=== PATIENT | female | born 1990 ===

== ENCOUNTER 2017-03-21 16:55 | Inpatient (IN) | payer MEDICAID, SELFPAY ==
[2017-03-21 20:18] VITALS: BMI 28.5
[2017-03-21 22:49] LABS: BASO % 0.3 % (0.0-2.0); EOS # 0.1 K/uL (0.0-0.7); EOS % 1.2 % (0.0-4.0); HEMATOCRIT 39.7 % (34.0-47.0); LYMPH # 1.8 K/uL (1.0-4.3); LYMPH % 14.2 % (20.0-40.0); MEAN CELL VOLUME 92.7 fL (81.0-99.0); MEAN CORPUSCULAR HGB CONC 33.4 g/dL (33.0-37.0); MONO # 0.9 K/uL (0.0-0.8); RED CELL DISTRIBUTION WIDTH 13.8 % (11.5-14.5); WHITE BLOOD COUNT 12.4 K/uL (4.8-10.8)
[2017-03-22 06:06] LABS: URINE COLOR YELLOW (YELLOW); URINE GLUCOSE (UA) Normal (Normal)
[2017-03-22 06:07] LABS: RBC URINE 7 /hpf (0-3); URINE BACTERIA OCC (<OCC); URINE BILIRUBIN NEGATIVE (NEGATIVE); URINE BLOOD 3+ (NEGATIVE); URINE KETONE NEGATIVE (NEGATIVE); URINE LEUKOCYTE ESTERASE 1+ Leu/uL (Negative); URINE PROTEIN NEGATIVE (NEGATIVE); URINE UROBILINOGEN Normal mg/dL (0.2-1.0); WBC URINE 16 /hpf (0-5)
[2017-03-22 07:22] LABS: BLOOD UREA NITROGEN 8 mg/dL (7-17); GLUCOSE,RANDOM 86 mg/dL (65-105)
[2017-03-22 07:23] LABS: CALCIUM 8.8 mg/dl (8.6-10.4); CARBON DIOXIDE 19 mmol/L (22-30); CHLORIDE 102 mmol/L (98-107); GFR AFRICAN-AMERICAN > 60; POTASSIUM 3.6 mmol/L (3.6-5.2); SODIUM 134 mmol/L (132-148)
[2017-03-22 09:00] LABS: HEMATOCRIT 35.9 % (34.0-47.0)
[2017-03-22] MEDS: Multiple Vitamins Tab PO SCH (09:15)
--- NOTE | 2017-03-22 12:33 | OBPPN ---
Datetime: 03/22/2017 12:30 PP Pain Prov: Within normal limits PP Nausea Prov: Denies PP Flatus Prov: Yes PP Breasts Prov: Normal PP Heart Prov: Normal PP Lungs Prov: Normal PP Abdomen/Uterus Prov: Normal PP Lochia Prov: Normal PP Vulva/Perineum Prov: Normal PP CVA Tenderness Prov: Normal PP Extremities Prov: Normal PP C/S Incision Prov: Normal PP Progress Prov: Normal PP Comments Phys Exam Prov: ABD: soft, NT, BS- present UT- Firm PP Impression Prov: Normal progression PP Plan Prov: Continue present management PP Progress Note Prov: S/P , POD #2 Clinically Stable. Plan: Continue care. Vital Signs Provider PP: Reviewed
--- NOTE | 2017-03-23 08:07 | OBPPN ---
Datetime: 03/23/2017 08:02 PP Pain Prov: Within normal limits PP Nausea Prov: Denies PP Flatus Prov: Yes PP BM Prov: Yes PP Breasts Prov: Normal PP Heart Prov: Normal PP Lungs Prov: Normal PP Abdomen/Uterus Prov: Normal PP Lochia Prov: Normal PP Vulva/Perineum Prov: Normal PP CVA Tenderness Prov: Normal PP Extremities Prov: Normal PP Progress Prov: Normal PP Comments Phys Exam Prov: Skin: warm, dry, intact Abdomen: Obese. Soft. nondistended. Fundus firm, mobile, non tender, 1FB below umbilicus Mild loch ia rubra All other systems reviewed and are negative PP Impression Prov: Normal progression PP Plan Prov: Discharge PP Progress Note Prov: Patient received in room 453; asleep, easlily awakened. Breast- and bottlefee ding. Denies nausea, vomiting. ambulating and voiding without difficulty. P.E.: as above. WD in NAD, Awake, alert, oriented to time, person and place. - PPD1 H/H 12/35.9 Assessment: PPD#2 26 y.o. P4, S/P . Afebrile, vital signs stable. Desires to use IUD for contra ception. Clinically stable. Plan: 1) Discharge home 2) See full discharge instructions Vital Signs Provider PP: Reviewed; Within Normal Limits
--- NOTE | 2017-03-23 08:08 | OBDCSUM ---
Datetime: 01/23/2017 13:55 Discharge Diagnosis, Provider: Term Delivered Follow up in weeks, Provider: 6 weeks Contraception discussed, Prov: Yes Disch Activity Restrictions: No sexual activity; Nothing in vagina - [place], tampons, douche Discharge Diagnosis Prov Other: Contraception counseling Contraception after Delivery: IUD
[2017-03-23 08:45] VITALS: BP 98/53; PULSE 67; RESP 18; TEMP 97.7; O2SAT 99
[2017-03-23] MEDS: Multiple Vitamins Tab PO SCH (10:00)
--- NOTE | 2017-03-27 14:25 | OBDS ---
DELIVERY PERSONNEL Delivery Doctor: Mike Maxwell MD Scrub Nurse: Patricia Vega Patrol Conductor: Evelia Graff RN Anesthesiologist: DR. MARIN MATERNAL INFORMATION Delivery Anesthesia: Epidural Medications in Delivery: PITOCIN Estimated Blood Loss (ml): 150 Placenta Cultured: No Maternal Complications: None RN Comments: LIVE BABY GIRL 'S 9/9 SKIN TO SKIN DONE BREAST FEEDING STARTED Provider Comments: to a viable girl, 's 9/9, uncomplicated. LABOR SUMMARY EDC: 03/23/2017 00:00 No. Babies in Womb: 1 Attempted: No Labor Anesthesia: Epidural LABOR INFORMATION Reason for Induction: Not Applicable Onset of Labor: 03/21/2017 15:00 Complete Dilatation: 03/21/2017 19:42 Oxytocin: N/A Group B Beta Strep: Negative Antibiotics # of Doses: 0 Steroids Given: None Reason Steroids Not Administered: Not Applicable MEMBRANES Membranes Rupture Method: Artificial Rupture of Membranes: 03/22/2017 19:42 Length of Rupture (hrs): -23.92 Amniotic Fluid Color: Clear Amniotic Fluid Amount: Moderate Amniotic Fluid Odor: Normal STAGES OF LABOR Stage 1 hrs: 4 Stage 1 min: 42 Stage 2 hrs: 0 Stage 2 min: 5 Stage 3 hrs: 0 Stage 3 min: 1 Total Time in Labor hrs: 4 Total Time in Labor min: 48 VAGINAL DELIVERY Episiotomy: None Laceration Extension: N/A Laceration Type: None Initial Vag Sponge Count: 10 Final Vag Sponge Count: 10 Initial Vag Sharps Count: 0 Final Vag Sharps Count: 0 Sponge Count Correct: Yes; Vaginal Sweep Performed Sharps Count Correct: N/A BABY A INFORMATION Delivery Date/Time: 03/21/2017 19:47 Method of Delivery: Vaginal Born in Route : No : N/A Forceps: N/A Vacuum Extraction: N/A Shoulder Dystocia : No SHOULDER DYSTOCIA BABY A Infant Delivery Date/Time: 03/21/2017 19:47 PRESENTATION/POSITION BABY A Presentation: Cephalic Cephalic Presentation: Vertex Vertex Position: Right Occipital Anterior Breech Presentation: N/A PLACENTA INFORMATION BABY A Placenta Delivery Time : 03/21/2017 19:48 Placenta Method of Delivery: Spontaneous Placenta Status: Delivered SCORES BABY A Heart Rate 1 min: >100 bpm Resp Effort 1 min: Good Cry Reflex Irritability 1 min: Cough or Sneeze or Pulls Away Muscle Tone 1 min: Active Motion Color 1 min: Body [place], Extremities Blue Resuscitation Effort 1 min: Tactile Stimulation SCORE 1 MIN: 9 Heart Rate 5 min: >100 bpm Resp Effort 5 min: Good Cry Reflex Irritability 5 min: Cough or Sneeze or Pulls Away Muscle Tone 5 min: Active Motion Color 5 min: Body [place], Extremities Blue Resuscitation Effort 5 min: Tactile Stimulation SCORE 5 MIN: 9 INFORMATION BABY A Gestational Age at Delivery: 39.5 Gestational Status: Term Infant Outcome : Liveborn Condition : Stable Infant Sex: Female IDENTIFICATION/MEDS BABY A ID Band Number: [id number] ID Band Location: Left Leg; Left Arm Sensor Applied: Yes Sensor Number: [id number] Sensor Number: [id number] Sensor Location : Cord Clamp WEIGHT/LENGTH BABY A Infant Birthweight (gms): 2685 Birthweight (gms): 2685 Weight (lb): 5 Weight (lb): 5 Weight (oz): 15 Infant Weight (oz): 15 Infant Length Inches: 19.00 Infant Length cms: 48.3 CORD INFORMATION BABY A No. Cord Vessels: 3 Nuchal Cord : N/A Cord Blood Taken: Yes Suction: Mouth; Nose ASSESSMENT BABY A Infant Complications: None Physical Findings at Delivery: Within Normal Limits Infant Respirations: Appears Normal Crude Tester/ALS Called : No Care By: PABLO HOOPER Transferred To: [facility]
--- NOTE | 2017-03-27 14:25 | OBHP ---
Datetime: 03/21/2017 17:36 Admit Comment, IP Provider: Early Active Labor. Reassuring Status. Admit for Labor Protocol A nticipate . Addendum:Admission H_P unchanged from JEREMÍAS. EGA AdmitDate IP: 39.5
--- NOTE | 2017-03-27 14:30 | OBADHP ---
Datetime: 03/21/2017 17:45 Admit Comment, IP Provider: Early Active Labor Pelvic Type - PN: Adequate Extremities - PN: Normal Abdomen - PN: Normal Back - PN: Normal Breast - PN: Not Done Lungs - PN: Normal Heart - PN: Normal Thyroid - PN: Not Done Neurologic - PN: Not Done HEENT - PN: Not Done General - PN: Normal Weight - Estimated: 3600 Presentation-Admit: Vertex FHR - Baseline A Provider: 120 Membranes, Provider: Intact Contraction Comments Provider: Q 3min Gestation - Est Wks by US: 40.0 Nitrazine Provider: Negative IP Hx Assessment: The History has been Reviewed and is Current Vital Signs Provider: Reviewed; Within Normal Limits IP Chief Complaint: Uterine contractions; Suspected ruptured membranes NICHD Variability Prov Fetus A: Moderate 6-25bpm NICHD Accel Fetus A IP Provider: 15X15 FHR Category Provider Fetus A: Category I NICHD Decel Fetus A IP Provider: None Dilatation, Provider: 3-4 Effacement, Provider: 80 Station, Provider: -2 Genitourinary Exam: Normal DTRs - PN: Normal EGA AdmitDate IP: 39.5 IP Adm Impression: Term, intrauterine ; Active labor IP Admit Plan: Admit to unit; Initiate labor protocol
--- NOTE | 2017-03-27 14:34 | OBHP ---
Datetime: 03/21/2017 17:45 IP Adm Impression: Term, intrauterine ; Active labor IP Admit Plan: Admit to unit; Initiate labor protocol Admit Comment, IP Provider: Early Active Labor Pelvic Type - PN: Adequate Extremities - PN: Normal Abdomen - PN: Normal Back - PN: Normal Breast - PN: Not Done Lungs - PN: Normal Heart - PN: Normal Thyroid - PN: Not Done Neurologic - PN: Not Done HEENT - PN: Not Done General - PN: Normal Weight - Estimated: 3600 Presentation-Admit: Vertex FHR - Baseline A Provider: 120 Membranes, Provider: Intact Contraction Comments Provider: Q 3min Gestation - Est Wks by US: 40.0 Nitrazine Provider: Negative IP Hx Assessment: The History has been Reviewed and is Current EGA AdmitDate IP: 39.5 Vital Signs Provider: Reviewed; Within Normal Limits IP Indication for Induction: Not Applicable IP Chief Complaint: Uterine contractions; Suspected ruptured membranes NICHD Variability Prov Fetus A: Moderate 6-25bpm NICHD Accel Fetus A IP Provider: 15X15 FHR Category Provider Fetus A: Category I NICHD Decel Fetus A IP Provider: None Dilatation, Provider: 3-4 Effacement, Provider: 80 Station, Provider: -2 Genitourinary Exam: Normal DTRs - PN: Normal
== END 2017-03-23 12:30 | disposition home or self-care (01) | DRG 373 ==
LOC: C.EROB 16:55 → C.4D 16:56 → MERGE 16:56 → C.4M 23:00
PROVIDERS: ADMIT Obstetrics & Gynecology; ATTEND Obstetrics & Gynecology
PROC: 10E0XZZ Delivery of Products of Conception, External Approach (ICD-10-PCS; principal; 2017-03-21)
PROC: 10907ZC Drainage of Amniotic Fluid, Therapeutic from Products of Conception, Via Natural or Artificial Opening (ICD-10-PCS; 2017-03-21)
DX: O80 Encounter for full-term uncomplicated delivery (principal); Z3A.39 39 weeks gestation of pregnancy; Z37.0 Single live birth

== ENCOUNTER 2017-04-22 19:22 | Emergency (ER) | payer SELFPAY ==
[2017-04-22 19:22] VITALS: BMI 28.5
[2017-04-22 19:39] VITALS: BP 105/70; RESP 18; TEMP 98.3; O2SAT 98
--- NOTE | 2017-04-22 20:47 | C.PDOC ---
History Of Present Illness 26 y/o female presents to the ED for evaluation of left ear pain associated with sore throat which began around 3 days ago. Patient denies fever, chills, nausea, vomiting. Time Seen by Provider: 04/22/17 20:03 Chief Complaint (Nursing): Flu-like Symptoms History Per: Patient History/Exam Limitations: no limitations Onset/Duration Of Symptoms: Days (3) Current Symptoms Are (Timing): Still Present Location Of Pain: Ear(s) (left), Throat Associated Symptoms: denies: Fever, Chills, Nausea, Vomiting Ear Symptoms: Left: Ear Pain, Right: None Additional History Per: Patient Past Medical History Reviewed: Historical Data, Nursing Documentation, Vital Signs Vital Signs: Last Vital Signs Temp 98.3 F 04/22/17 19:36 Pulse 82 04/22/17 20:53 Resp 18 04/22/17 19:36 BP 105/70 04/22/17 19:36 Pulse Ox 98 04/22/17 22:07 - Medical History PMH: No Chronic Diseases Denies: Anxiety, Asthma Surgical History: No Surg Hx - [facility] Procedures DELIVERY OF PRODUCTS OF CONCEPTION, EXTERNAL APPROACH (03/21/17) DRAINAGE OF AMNIOTIC FL, THERAP FROM POC, VIA OPENING (03/21/17) Family History: States: Unknown Family Hx - Social History Hx Tobacco Use: Yes Hx Alcohol Use: No Hx Substance Use: No - Immunization History Hx Tetanus Toxoid Vaccination: No Hx Influenza Vaccination: No Hx Pneumococcal Vaccination: No Review Of Systems Except As Marked, All Systems Reviewed And Found Negative. Constitutional: Negative for: Fever, Chills ENT: Positive for: Ear Pain (left), Throat Pain Gastrointestinal: Negative for: Nausea, Vomiting Physical Exam - Physical Exam Appears: Non-toxic, No Acute Distress Skin: Normal Color, Warm, Dry Head: Atraumatic, Normacephalic Eye(s): bilateral: Normal Inspection Ear(s): Bilateral: Normal Nose: Normal, No Discharge Oral Mucosa: Moist Throat: Erythema (mild), No Exudate Neck: Normal ROM, Supple Chest: Symmetrical, No Deformity, No Tenderness Cardiovascular: Rhythm Regular, No Friction Rub, No Murmur Respiratory: Normal Breath Sounds, No Rales, No Rhonchi, No Wheezing Gastrointestinal/Abdominal: Bowel Sounds, Soft, No Tenderness Back: Normal Inspection Extremity: Normal ROM, No Swelling Neurological/Psych: Oriented x3, Normal Speech, Normal Cognition, Normal Motor Gait: Steady ED Course And Treatment O2 Sat by Pulse Oximetry: 98 (on RA) Pulse Ox Interpretation: Normal Medical Decision Making Medical Decision Making: Plan: * Amoxicillin PO * Tylenol PO * reassess and disposition Progress: Patient received Amoxicillin PO and Tylenol PO. On reassessment, pt is resting comfortably, showing no signs of distress and reports an improvement in her symptoms. Patient is stable for discharge and is advised to f/u with her PMD within 1-2 days for further evaluation. Disposition - Disposition Referrals: [facility] [Outside] Disposition: HOME/ ROUTINE Disposition Time: 20:43 Condition: GOOD Additional Instructions: Follow up with the medical doctor within 1-2 days. Return if worsened. 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 - Scribe Statement The provider has reviewed the documentation as recorded by the Scribe (Delphine Quintana) All medical record entries made by the Scribe were at my direction and personally dictated by me. I have reviewed the chart and agree that the record accurately reflects my personal performance of the history, physical exam, medical decision making, and the department course for this patient. I have also personally directed, reviewed, and agree with the discharge instructions and disposition.
[2017-04-22 20:54] VITALS: PULSE 82
== END 2017-04-22 20:54 | disposition home or self-care (01) ==
LOC: C.ER 19:22 → SUPCPDRO 19:22 → C.ER 20:54
DX: J02.9 Acute pharyngitis, unspecified (principal); Z72.0 Tobacco use

== ENCOUNTER 2017-05-30 15:48 | Emergency (ER) | payer OTHER ==
[2017-05-30 15:48] VITALS: BMI 28.5
--- NOTE | 2017-05-30 17:49 | C.PDOC ---
History Of Present Illness 26 y/o female presents to the ED with complaints of dysuria x2 weeks. Pt denies fever, chills, back pain, vaginal bleeding or discharge or any other complaints. Pt currently . Chief Complaint (Nursing): Female Genitourinary History Per: Patient History/Exam Limitations: no limitations Onset/Duration Of Symptoms: Days Current Symptoms Are (Timing): Still Present Severity: Moderate Associated Symptoms: Urinary Symptoms. denies: Fever, Chills, Nausea, Vomiting , Back Pain Alleviating Factors: None Recent travel outside of the [place]: No Abnormal Vaginal Bleeding: No Past Medical History Reviewed: Historical Data, Nursing Documentation, Vital Signs Vital Signs: Last Vital Signs Temp 98.4 F 05/30/17 19:31 Pulse 96 H 05/30/17 19:31 Resp 18 05/30/17 19:31 BP 110/76 05/30/17 19:31 Pulse Ox 100 05/30/17 19:31 - [facility] Procedures DELIVERY OF PRODUCTS OF CONCEPTION, EXTERNAL APPROACH (03/21/17) DRAINAGE OF AMNIOTIC FL, THERAP FROM POC, VIA OPENING (03/21/17) Family History: States: Unknown Family Hx - Social History Hx Tobacco Use: Yes Hx Alcohol Use: No Hx Substance Use: No - Immunization History Hx Tetanus Toxoid Vaccination: No Hx Influenza Vaccination: No Hx Pneumococcal Vaccination: No Review Of Systems Constitutional: Negative for: Fever, Chills Genitourinary: Positive for: Dysuria. Negative for: Vaginal Discharge, Vaginal Bleeding Musculoskeletal: Negative for: Back Pain Physical Exam - Physical Exam Appears: Non-toxic, No Acute Distress Skin: Warm, Dry, No Rash Head: Atraumatic, Normacephalic Gastrointestinal/Abdominal: Normal Exam, Soft, No Tenderness Back: Normal Inspection, No CVA Tenderness Extremity: Normal ROM Extremity: Bilateral: Atraumatic Neurological/Psych: Oriented x3, Normal Speech, Normal Cognition ED Course And Treatment O2 Sat by Pulse Oximetry: 97 (room air) Pulse Ox Interpretation: Normal Progress Note: Plan: UA Disposition - Disposition Disposition: HOME/ ROUTINE Disposition Time: 19:58 Condition: STABLE Additional Instructions: Follow up with PMD within 1-2 days. Return to Ed if feel worse. Prescriptions: Nitrofurantoin Macrocrystals [Macrobid] 1 cap PO BID #14 cap Phenazopyridine [Pyridium] 200 mg PO TID #15 tab Instructions: Urinary Tract Infection in Women (ED) Forms: [facility] (Hungarian) Print Language: FRENCH - Clinical Impression Clinical Impression: UTI (urinary tract infection) - PA / DIRECTOR OF GRADUATE ADMISSIONS / Resident Statement MD/DO has reviewed & agrees with the documentation as recorded. - Scribe Statement The provider has reviewed the documentation as recorded by the Scribe Mk Wong All medical record entries made by the Isabelleibandrea were at my direction and personally dictated by me. I have reviewed the chart and agree that the record accurately reflects my personal performance of the history, physical exam, medical decision making, and the department course for this patient. I have also personally directed, reviewed, and agree with the discharge instructions and disposition.
[2017-05-30 17:58] LABS: RBC URINE < 1 /hpf (0-3); URINE BACTERIA FEW (<OCC); URINE BILIRUBIN NEGATIVE (NEGATIVE); URINE BLOOD NEGATIVE (NEGATIVE); URINE COLOR Yellow (YELLOW); URINE GLUCOSE (UA) NORMAL (Normal); URINE KETONE NEGATIVE (NEGATIVE); URINE LEUKOCYTE ESTERASE TRACE Leu/uL (Negative); URINE PROTEIN NEGATIVE (NEGATIVE); URINE UROBILINOGEN NORMAL mg/dL (0.2-1.0); WBC URINE 4 /hpf (0-5)
[2017-05-30 19:32] VITALS: RESP 18
[2017-05-30 20:13] VITALS: BP 111/68; PULSE 81; TEMP 98.5
[2017-05-30 21:11] VITALS: O2SAT 97
== END 2017-05-30 20:14 | disposition home or self-care (01) ==
LOC: C.ER 15:48
DX: N39.0 Urinary tract infection, site not specified (principal)

== ENCOUNTER 2018-04-04 05:51 | Emergency (ER) | payer OTHER ==
[2018-04-04 05:51] VITALS: BMI 28.5
--- NOTE | 2018-04-04 06:03 | C.PDOC ---
History Of Present Illness 27 y/o female presents to the ED complaining of RUQ pain and mild dysuria, onset today. Patient reports PMHx of gall stones. Associated with some nausea, no vomiting. Otherwise denies any bloody stool, diarrhea, fever, or chills. Time Seen by Provider: 04/04/18 06:02 Chief Complaint (Nursing): Abdominal Pain History Per: Patient History/Exam Limitations: no limitations Onset/Duration Of Symptoms: Hrs Current Symptoms Are (Timing): Still Present Severity: Moderate Pain Scale Rating Of: 6 Location Of Pain/Discomfort: RUQ Radiation Of Pain To:: None Quality Of Discomfort: Sharp, Stabbing Associated Symptoms: Nausea Exacerbating Factors: None Alleviating Factors: None Past Medical History Reviewed: Historical Data, Nursing Documentation, Vital Signs Vital Signs: Last Vital Signs Temp 97.9 F 04/04/18 05:53 Pulse 72 04/04/18 05:53 Resp 16 04/04/18 05:53 BP 123/74 04/04/18 05:53 Pulse Ox 99 04/04/18 06:26 - Medical History PMH: No Chronic Diseases Denies: Anxiety, Asthma Surgical History: No Surg Hx - [facility] Procedures DELIVERY OF PRODUCTS OF CONCEPTION, EXTERNAL APPROACH (03/21/17) DRAINAGE OF AMNIOTIC FL, THERAP FROM POC, VIA OPENING (03/21/17) Family History: States: Unknown Family Hx - Social History Hx Tobacco Use: Yes Hx Alcohol Use: No Hx Substance Use: No - Immunization History Hx Tetanus Toxoid Vaccination: No Hx Influenza Vaccination: No Hx Pneumococcal Vaccination: No Review Of Systems Except As Marked, All Systems Reviewed And Found Negative. Constitutional: Negative for: Fever, Chills Gastrointestinal: Positive for: Nausea, Abdominal Pain. Negative for: Vomiting , Diarrhea Genitourinary: Positive for: Dysuria Physical Exam - Physical Exam Appears: Non-toxic, No Acute Distress Skin: Warm, Dry Head: Normacephalic Eye(s): bilateral: Normal Inspection Oral Mucosa: Moist Neck: Trachea Midline, Supple Chest: Symmetrical Cardiovascular: Rhythm Regular Respiratory: No Rales, No Rhonchi, No Wheezing Gastrointestinal/Abdominal: Bowel Sounds (positive), Soft, Tenderness (to right upper quadrant), No Guarding, Other (Obese abdomen) Back: Normal Inspection Extremity: Bilateral: Atraumatic, Normal Color And Temperature, Normal ROM Pulses: Left Dorsalis Pedis: Normal, Right Dorsalis Pedis: Normal Neurological/Psych: Oriented x3 Gait: Steady ED Course And Treatment O2 Sat by Pulse Oximetry: 99 (RA) Pulse Ox Interpretation: Normal Progress Note: Blood work, urine, and CT A/P with IV contrast ordered. Patient treated with IV fluids, Morphine, and Zofran. 7:[address] Cronin , pending CT scan. Disposition Counseled Patient/Family Regarding: Studies Performed, Diagnosis - Disposition Disposition Time: 06:03 Condition: FAIR Forms: [employer] ([place]) - Clinical Impression Clinical Impression: Abdominal pain - Scribe Statement The provider has reviewed the documentation as recorded by the Scribe (Lindsay Whiting) Provider Attestation: All medical record entries made by the Scribe were at my direction and personally dictated by me. I have reviewed the chart and agree that the record accurately reflects my personal performance of the history, physical exam, medical decision making, and the department course for this patient. I have also personally directed, reviewed, and agree with the discharge instructions and disposition. Physician Patient Turnover Patient Signed Over To: Shashi Cronin Handoff Comments: pending CT and remaining labs
[2018-04-04 06:07] VITALS: RESP 16
[2018-04-04] MEDS ORDERED: Sodium Chloride 0.9% 1,000 ML IV ONE (06:15)
[2018-04-04 06:16] LABS: HCG,QUALITATIVE URINE NEGATIVE (NEGATIVE)
[2018-04-04 06:20] LABS: SQUAMOUS EPITHIAL 5 /hpf (0-5); URINE BILIRUBIN NEGATIVE (NEGATIVE); URINE BLOOD 3+ (NEGATIVE); URINE CLARITY Clear (Clear); URINE COLOR Straw (YELLOW); URINE GLUCOSE (UA) NORMAL (Normal); URINE LEUKOCYTE ESTERASE NEG Leu/uL (Negative); URINE PROTEIN NEGATIVE (NEGATIVE); URINE UROBILINOGEN NORMAL mg/dL (0.2-1.0)
[2018-04-04 06:43] LABS: BASO # 0.1 K/uL (0.0-0.2); EOS # 0.6 K/uL (0.0-0.7); HEMOGLOBIN 13.9 g/dL (11.0-16.0); LYMPH # 2.2 K/uL (1.0-4.3); LYMPH % 28.7 % (20.0-40.0); MEAN CELL VOLUME 89.4 fL (81.0-99.0); MEAN CORPUSCULAR HEMOGLOBIN 32.5 pg (27.0-31.0); MEAN CORPUSCULAR HGB CONC 36.3 g/dL (33.0-37.0); MEAN PLATELET VOLUME 8.6 fL (7.2-11.7); MONO # 0.6 K/uL (0.0-0.8); MONO % 7.5 % (0.0-10.0); NEUT # 4.3 K/uL (1.8-7.0); NEUT % 54.8 % (50.0-75.0); NRBC % 0.1 % (0.0-2.0); RBC 4.27 Mil/uL (3.80-5.20); RED CELL DISTRIBUTION WIDTH 12.5 % (11.5-14.5); WHITE BLOOD COUNT 7.8 K/uL (4.8-10.8)
[2018-04-04 06:54] LABS: ALB/GLOB RATIO 1.3 (1.0-2.1); ALT/SGPT 50 U/L (9-52); AST/SGOT 27 U/L (14-36); BLOOD UREA NITROGEN 13 mg/dL (7-17); GFR AFRICAN-AMERICAN > 60; GFR NON-AFRICAN AMERICAN > 60; LIPASE 130 U/L (23-300)
[2018-04-04 06:56] LABS: INR 1.1; PROTHROMBIN TIME 11.8 SECONDS (9.7-12.2)
[2018-04-04] MEDS ORDERED: Iodixanol 320 MG/ML 100 ML BOTTLE IV ONE (07:31)
[2018-04-04 08:19] VITALS: O2SAT 98
--- NOTE | 2018-04-04 08:29 | CT ---
PROCEDURE: CT Abdomen and Pelvis with contrast HISTORY: Right upper quadrant pain COMPARISON: None. TECHNIQUE: CT scan of the abdomen and pelvis was performed after administration of intravenous contrast. Oral contrast was not administered. Coronal and sagittal reformatted images were obtained. Contrast dose: Radiation dose: Total exam DLP = 100 mL Visipaque mGy-cm. This CT exam was performed using one or more of the following dose reduction techniques: Automated exposure control, adjustment of the mA and/or kV according to patient size, and/or use of iterative reconstruction technique. FINDINGS: LOWER THORAX: The lung bases are clear. LIVER: There is mild hepatomegaly and diffuse low-attenuation in the liver. No gross lesion or ductal dilatation. GALLBLADDER AND BILE DUCTS: There is a small gallstone PANCREAS: Normal in size with homogeneous enhancement. No gross lesion or ductal dilatation. SPLEEN: Normal in size and appearance. ADRENALS: No discrete nodule. KIDNEYS AND URETERS: Normal in size with homogeneous enhancement. No hydronephrosis. No solid mass. VASCULATURE: No aortic aneurysm. BOWEL: The small bowel loops are normal in caliber. The colon is unremarkable. No bowel dilatation or obstruction. APPENDIX: Normal appendix. PERITONEUM: No free fluid. No free air. LYMPH NODES: No enlarged lymph nodes. BLADDER: Well distended and normal in appearance. REPRODUCTIVE: The uterus is normal in size. BONES: No acute fracture. Within normal limits for the patient's age. OTHER FINDINGS: None. IMPRESSION: 1. Mild hepatomegaly. Diffuse decreased density in the liver may reflect hepatic steatosis however parenchymal infectious/ inflammatory etiologies cannot be entirely excluded. Clinical and laboratory correlation is advised. 2. No CT evidence for acute appendicitis.
[2018-04-04 09:30] VITALS: BP 125/80; PULSE 84; TEMP 98.5
== END 2018-04-04 09:30 | disposition home or self-care (01) ==
LOC: C.ER 05:51
DX: K80.20 Calculus of gallbladder without cholecystitis without obstruction (principal); R10.11 Right upper quadrant pain
CPT/HCPCS: 74177; 80053; 81001; 83690; 84703; 85025; 85610; 85730; 96374; 96375; 99285; J2270; J2405; J7030; Q9967

== ENCOUNTER 2018-05-26 18:53 | Emergency (ER) | payer OTHER ==
[2018-05-26 18:53] VITALS: BMI 28.5
[2018-05-26 20:09] LABS: HCG,QUALITATIVE URINE POSITIVE (NEGATIVE)
[2018-05-26 20:10] LABS: BASO % 0.4 % (0.0-2.0); EOS # 0.4 K/uL (0.0-0.7); EOS % 3.4 % (0.0-4.0); HEMOGLOBIN 13.6 g/dL (11.0-16.0); LYMPH # 2.5 K/uL (1.0-4.3); LYMPH % 20.7 % (20.0-40.0); MEAN CELL VOLUME 90.7 fL (81.0-99.0); MEAN CORPUSCULAR HEMOGLOBIN 31.6 pg (27.0-31.0); MEAN CORPUSCULAR HGB CONC 34.8 g/dL (33.0-37.0); MEAN PLATELET VOLUME 8.9 fL (7.2-11.7); MONO # 0.9 K/uL (0.0-0.8); MONO % 7.2 % (0.0-10.0); NEUT # 8.3 K/uL (1.8-7.0); NEUT % 68.3 % (50.0-75.0); RBC 4.3 Mil/uL (3.80-5.20); RED CELL DISTRIBUTION WIDTH 12.6 % (11.5-14.5)
[2018-05-26 20:12] LABS: WHITE BLOOD COUNT 12.2 K/uL (4.8-10.8)
[2018-05-26 20:18] LABS: SQUAMOUS EPITHIAL 9 /hpf (0-5); URINE BACTERIA RARE (<OCC); URINE BILIRUBIN NEGATIVE (NEGATIVE); URINE BLOOD 2+ (NEGATIVE); URINE CLARITY Hazy (Clear); URINE COLOR Yellow (YELLOW); URINE GLUCOSE (UA) NORMAL (Normal); URINE LEUKOCYTE ESTERASE 3+ Leu/uL (Negative); URINE PROTEIN 2+ mg/dL (NEGATIVE); URINE UROBILINOGEN NORMAL mg/dL (0.2-1.0)
[2018-05-26 20:23] LABS: ALB/GLOB RATIO 1.5 (1.0-2.1); ALBUMIN 4.5 g/dL (3.5-5.0); ALT/SGPT 69 U/L (9-52); AST/SGOT 32 U/L (14-36); BLOOD UREA NITROGEN 14 mg/dL (7-17); CALCIUM 9.6 mg/dl (8.6-10.4); GFR AFRICAN-AMERICAN > 60; GFR NON-AFRICAN AMERICAN > 60
--- NOTE | 2018-05-26 21:15 | C.PDOC ---
History Of Present Illness 27-year-old female presents to the ED with complaints of suprapubic pain since this morning. Pain is described as crampy in nature, intermittent, and radiates to her back. Otherwise patient denies any fever, vomiting, dysuria, frequency, or vaginal bleeding. Patient does report some nausea. LMP was 04/16. She noticed some light spotting for 2 days last week, and had a home test that was positive. Time Seen by Provider: 05/26/18 19:34 Chief Complaint (Nursing): Abdominal Pain History Per: Patient History/Exam Limitations: no limitations Onset/Duration Of Symptoms: Hrs Current Symptoms Are (Timing): Still Present Location Of Pain/Discomfort: Suprapubic Abnormal Vaginal Bleeding: No Last Menstral Period: 04/16/18 Past Medical History Reviewed: Historical Data, Nursing Documentation, Vital Signs Vital Signs: Last Vital Signs Temp 99 F 05/26/18 22:09 Pulse 68 05/26/18 22:09 Resp 18 05/26/18 22:09 BP 104/66 05/26/18 22:09 Pulse Ox 98 05/26/18 22:36 - Medical History PMH: No Chronic Diseases Denies: Anxiety, Asthma Surgical History: No Surg Hx - [facility] Procedures DELIVERY OF PRODUCTS OF CONCEPTION, EXTERNAL APPROACH (03/21/17) DRAINAGE OF AMNIOTIC FL, THERAP FROM POC, VIA OPENING (03/21/17) Family History: States: Unknown Family Hx - Social History Hx Tobacco Use: Yes Hx Alcohol Use: No Hx Substance Use: No - Immunization History Hx Tetanus Toxoid Vaccination: No Hx Influenza Vaccination: No Hx Pneumococcal Vaccination: No Review Of Systems Except As Marked, All Systems Reviewed And Found Negative. Gastrointestinal: Positive for: Nausea, Abdominal Pain. Negative for: Vomiting , Diarrhea Genitourinary: Negative for: Dysuria, Frequency, Incontinence, Vaginal Bleeding Physical Exam - Physical Exam Appears: Well, Non-toxic, No Acute Distress Skin: Warm, Dry, No Rash Head: Atraumatic, Normacephalic Eye(s): bilateral: Normal Inspection Oral Mucosa: Moist Neck: Normal ROM Chest: Symmetrical Cardiovascular: Rhythm Regular, No Murmur Respiratory: Normal Breath Sounds, No Rales, No Rhonchi, No Wheezing Gastrointestinal/Abdominal: Soft, Tenderness (mild suprapubic tenderness), No Guarding, No Rebound Back: Normal Inspection Extremity: Bilateral: Atraumatic, Normal Color And Temperature, Normal ROM Neurological/Psych: Oriented x3, Normal Speech ED Course And Treatment - Laboratory Results Result Diagrams: 05/26/18 19:59 05/26/18 19:59 Lab Interpretation: No Acute Changes O2 Sat by Pulse Oximetry: 98 (RA) Pulse Ox Interpretation: Normal - CT Scan/US US Other Rad Studies (CT/US): Read By Radiologist, Radiology Report Reviewed CT/US Interpretation: Name: MARTÍN MEDINA Age: 27Years F Date: 2017. Requesting Physician: GeorgeMartín : 1990. [facility] Procedure Ordered As Accession. Number. of. Images. US TRANSABD FIRST. TRIMESTER FIRST GEST. PREG 1ST. TRIMESTER/OB TV. [id number]. J. 89. Provided Clinical History: pelvic pain, , no bleeding. EXAM: US First Trimester, Transabdominal. US , Transvaginal. CLINICAL HISTORY: 27 years old, female; Pain; Other: Pelvic pain ; Gestational age or lmp: 5-20-18; ; Additional. info: Pelvic pain, , no bleeding. TECHNIQUE: Real-time transabdominal and transvaginal obstetrical ultrasound of the maternal pelvis and a first. trimester with image documentation. Transvaginal imaging was used for better evaluation. of the fetus and adnexa. COMPARISON: US - PREG 1ST TRIMESTER/OB TV 2015-11-29 16:33. FINDINGS: Gestation: There is an apparent intrauterine fluid collection seen on the transvaginal imaging in the. lower uterine segment. There is no yolk sac or pole present. This finding measures 1.2 cm a gestational sac of this size would be. 5 weeks 3 days gestational age. The appearance and location of this fluid collection suggests a possible nonviable gestation. A small subchorionic hemorrhage is seen 5.3 mm x 4.2 mm x 4 mm. The endometrium measures 7.3 mm. Placenta/amniotic fluid: Cannot be adequately evaluated due to the early gestational age. Uterus/cervix: Unremarkable. No myometrial mass. The cervix measures 3.1 cm in length. The uterus measures 10.5 cm x 4.5 cm x 5.5 cm. RIGHT ovary 3.4 cm x 2.6 cm x 2.2 cm. Corpus luteum cyst 1.9 cm x 1.3 cm x 1.4 cm. LEFT ovary 3.1 cm x 1.5 cm x 1.5 cm. It should. Ovaries: Unremarkable. No mass. Free fluid: No free fluid. IMPRESSION: 1. Small fluid collection in the lower uterine segment portion of the endometrium possible abnormal. gestational sac possible nonviable gestation. No yolk sac or pole. 2. negative exam of the LEFT ovary. 3. Corpus luteum cyst RIGHT ovary. 4. Small Subchorionic hemorrhage. Thank you for allowing us to participate in the care of your patient. Dictated and Authenticated by: Avelino Sargent MD. 05/26/2018 10:06 PM Eastern Time ([place] & Norm) Medical Decision Making Medical Decision Making: Impression: Abdominal pain, rule out ectopic Plan: --CMP --CBC --Beta-HCG, quant --Urine HCG --Urinalysis --Transvaginal US --Tylenol Progress/Updates: Labs reviewed. Ultrasound showed small fluid collection in the lower uterine segment portion of the endometrium possible abnormal gestational sac possible nonviable gestation. No yolk sac or pole. Small Subchorionic hemorrhage. Other findings, see full report. Counseled patient regarding ultrasound findings, provided with copy of report. I explained to the patient this may not be viable and there is chance for . I advised the patient to follow up with informal waiter/waitress or return to the ER in one week for repeat labs and US. The patient expressed understanding Disposition Counseled Patient/Family Regarding: Diagnosis, Need For Followup - Disposition [facility] Disposition: HOME/ ROUTINE Disposition Time: 22:35 Condition: STABLE Additional Instructions: Jennifer laboratorios y la ecografa muestran que tiene 5 semanas de embarazo. Tenga en cuenta que el ultrasonido fue anormal y que existe la posibilidad de un embarazo no viable y un aborto espontneo. Recomendar el seguimiento en anca semana con obgyn o regresar a la nilesh de emergencias para repetir el anlisis de taras y el ultrasonido Instructions: Threatened Miscarriage (DC) Forms: [facility] (Vietnamese) Print Language: BENGALI - POA Present On Arrival: None - Clinical Impression Clinical Impression: Threatened - PA / [employer]UM[employer] OPERATOR / Resident Statement MD/DO has reviewed & agrees with the documentation as recorded. - Scribe Statement The provider has reviewed the documentation as recorded by the Scribe (Lindsay Whiting) All medical record entries made by the Scribe were at my direction and personally dictated by me. I have reviewed the chart and agree that the record accurately reflects my personal performance of the history, physical exam, medical decision making, and the department course for this patient. I have also personally directed, reviewed, and agree with the discharge instructions and disposition.
[2018-05-26 22:10] VITALS: BP 104/66; PULSE 68; RESP 18; TEMP 99
[2018-05-26 22:12] VITALS: O2SAT 98
--- NOTE | 2018-05-27 10:20 | US ---
Date of service: 05/26/2018 PROCEDURE: OB Pelvic Ultrasound HISTORY: pelvic pain, , no bleeding LMP: 03/23/2018 Serum beta HCG 7043.3 COMPARISON: No relevant prior imaging. FINDINGS: UTERUS: Gestational sac: Elongated fluid collection within the lower uterine segment measuring 2.3 x 0.7 x 0.9 cm with subjacent 5 mm hypoechoic area. Yolk sac: Not visualized. pole: Not visualized. age (Ultrasound estimated): Polly-gestational hemorrhage: None. Date of delivery (Ultrasound estimated) : Uterus measures 10.5 x 4.5 x 5.5 cm. Anteverted. Normal in size and appearance. CERVIX: Measures 3.2 cm. Long and closed. No cervical abnormality seen. RIGHT OVARY: Measures 3.4 x 2.6 x 2.2 cm. 1.9 x 1.3 x 1.4 cm corpus luteum. Normal flow. LEFT OVARY: Measures 3.1 x 1.5 x 1.5 cm. No solid mass. Normal flow. FREE FLUID: None. OTHER FINDINGS: None. IMPRESSION: Elongated fluid collection within the lower uterine segment which may represent an abnormal gestational sac and/or nonviable gestation. Close clinical follow-up with serial pelvic sonography and serum beta HCG levels is recommended.
== END 2018-05-26 23:02 | disposition home or self-care (01) ==
LOC: C.ER 18:53
DX: O20.0 Threatened abortion (principal)

== ENCOUNTER 2018-05-27 21:40 | Emergency (ER) | payer OTHER ==
[2018-05-27 21:41] VITALS: BMI 28.5
[2018-05-27 22:04] VITALS: RESP 20
[2018-05-27 22:43] LABS: HCG,QUALITATIVE URINE POSITIVE (NEGATIVE)
[2018-05-27] MEDS ORDERED: Sodium Chloride 0.9% 1,000 ML IV ONE (22:43)
[2018-05-27 22:51] LABS: SQUAMOUS EPITHIAL 7 /hpf (0-5); URINE BACTERIA OCC (<OCC); URINE BILIRUBIN NEGATIVE (NEGATIVE); URINE BLOOD 3+ (NEGATIVE); URINE CLARITY Hazy (Clear); URINE COLOR Yellow (YELLOW); URINE GLUCOSE (UA) NORMAL (Normal); URINE LEUKOCYTE ESTERASE 3+ Leu/uL (Negative); URINE PROTEIN 2+ mg/dL (NEGATIVE); URINE UROBILINOGEN NORMAL mg/dL (0.2-1.0)
--- NOTE | 2018-05-27 23:01 | C.PDOC ---
History Of Present Illness 27 y/o female presents to ED for complaints of vaginal bleeding and cramping. Patient states she is 5 weeks and was seen here yesterday with an ultrasound done. Patient was told she was likely getting a miscarriage. Denies any other physical complaints. Prior US reviewed- Likely demise. Time Seen by Provider: 05/27/18 22:28 Chief Complaint (Nursing): Female Genitourinary History Per: Patient History/Exam Limitations: no limitations Onset/Duration Of Symptoms: Hrs Current Symptoms Are (Timing): Still Present Quality Of Discomfort: Cramping Associated Symptoms: denies: Fever, Chills, Nausea, Vomiting Alleviating Factors: None Recent travel outside of the [place]: No Abnormal Vaginal Bleeding: Yes Past Medical History Reviewed: Historical Data, Nursing Documentation, Vital Signs Vital Signs: Last Vital Signs Temp 100.2 F H 05/27/18 23:22 Pulse 115 H 05/28/18 00:05 Resp 20 05/28/18 00:05 BP 110/59 L 05/28/18 00:05 Pulse Ox 100 05/28/18 00:05 - Medical History PMH: No Chronic Diseases Denies: Anxiety, Asthma - [facility] Procedures DELIVERY OF PRODUCTS OF CONCEPTION, EXTERNAL APPROACH (03/21/17) DRAINAGE OF AMNIOTIC FL, THERAP FROM POC, VIA OPENING (03/21/17) Family History: States: Unknown Family Hx - Social History Hx Tobacco Use: Yes Hx Alcohol Use: No Hx Substance Use: No - Immunization History Hx Tetanus Toxoid Vaccination: No Hx Influenza Vaccination: No Hx Pneumococcal Vaccination: No Review Of Systems Constitutional: Negative for: Fever, Chills Eyes: Negative for: Pain, Vision Change, Conjunctivae Inflammation ENT: Negative for: Ear Pain, Ear Discharge, Nose Pain, Nose Discharge Cardiovascular: Negative for: Chest Pain, Palpitations, Orthopnea, Paroxysmal Noc. Dyspnea Respiratory: Negative for: Cough, Shortness of Breath Gastrointestinal: Negative for: Nausea, Vomiting, Abdominal Pain, Diarrhea Genitourinary: Positive for: Vaginal Bleeding. Negative for: Dysuria Musculoskeletal: Negative for: Neck Pain Skin: Negative for: Rash Neurological: Positive for: Headache. Negative for: Weakness, Numbness Psych: Negative for: Anxiety, Depression Physical Exam - Physical Exam Appears: Well, Non-toxic, No Acute Distress Skin: Normal Color, Warm, Dry Head: Atraumatic, Normacephalic Eye(s): bilateral: Normal Inspection, PERRL, EOMI Ear(s): Bilateral: Normal Nose: Normal Oral Mucosa: Moist Tongue: Normal Appearing Lips: Normal Appearing Gingiva: Normal Appearing Neck: Normal, Normal ROM, Supple Chest: Symmetrical, No Tenderness Cardiovascular: Rhythm Regular, No Murmur Respiratory: Normal Breath Sounds, No Decreased Breath Sounds, No Rales, No Rhonchi, No Wheezing Gastrointestinal/Abdominal: Soft, No Tenderness, No Distention Pelvic: Vaginal Bleeding, Other (OS CLOSED / BLOOD THRU OS ) Extremity: Normal ROM, No Pedal Edema, No Deformity Extremity: Bilateral: Atraumatic, No Pedal Edema, Normal Color And Temperature, Normal ROM Neurological/Psych: Oriented x3, Normal Speech Gait: Steady ED Course And Treatment - Laboratory Results Result Diagrams: 05/27/18 23:02 05/27/18 23:01 O2 Sat by Pulse Oximetry: 99 (RA) Pulse Ox Interpretation: Normal Medical Decision Making Medical Decision Making: Administered IV fluids. Ordered blood work and urinalysis. PT with likely miscarriage. severe lower abd pain with vaginal bleeding in . US ordered pain mds given- fentanyl 50 mcg for abd pain. tylenol 975 mg for headache . Prior US: Date of service: 05/26/2018 PROCEDURE: OB Pelvic Ultrasound HISTORY: pelvic pain, , no bleeding LMP: 03/23/2018 Serum beta HCG 7043.3 COMPARISON: No relevant prior imaging. FINDINGS: UTERUS: Gestational sac: Elongated fluid collection within the lower uterine segment measuring 2.3 x 0.7 x 0.9 cm with subjacent 5 mm hypoechoic area. Yolk sac: Not visualized. pole: Not visualized. age (Ultrasound estimated): Polly-gestational hemorrhage: None. Date of delivery (Ultrasound estimated) : Uterus measures 10.5 x 4.5 x 5.5 cm. Anteverted. Normal in size and appearance. CERVIX: Measures 3.2 cm. Long and closed. No cervical abnormality seen. RIGHT OVARY: Measures 3.4 x 2.6 x 2.2 cm. 1.9 x 1.3 x 1.4 cm corpus luteum. Normal flow. LEFT OVARY: Measures 3.1 x 1.5 x 1.5 cm. No solid mass. Normal flow. FREE FLUID: None. OTHER FINDINGS: None. IMPRESSION: Elongated fluid collection within the lower uterine segment which may represent an abnormal gestational sac and/or nonviable gestation. Close clinical follow- up with serial pelvic sonography and serum beta HCG levels is recommended. Disposition - Disposition Disposition: HOME/ ROUTINE Disposition Time: 00:45 Condition: FAIR Forms: [facility] (Mexican) - Clinical Impression Clinical Impression: Threatened
[2018-05-27 23:16] LABS: BASO % 0.3 % (0.0-2.0); EOS # 0.3 K/uL (0.0-0.7); HEMOGLOBIN 12.9 g/dL (11.0-16.0); LYMPH % 15.9 % (20.0-40.0); MEAN CELL VOLUME 91.9 fL (81.0-99.0); MEAN CORPUSCULAR HGB CONC 34.8 g/dL (33.0-37.0); MEAN PLATELET VOLUME 9.2 fL (7.2-11.7); MONO # 0.9 K/uL (0.0-0.8); MONO % 6.9 % (0.0-10.0); NEUT # 9.2 K/uL (1.8-7.0); NEUT % 74.9 % (50.0-75.0); RBC 4.04 Mil/uL (3.80-5.20); RED CELL DISTRIBUTION WIDTH 12.8 % (11.5-14.5); WHITE BLOOD COUNT 12.3 K/uL (4.8-10.8)
[2018-05-28 00:10] LABS: ALB/GLOB RATIO 1.4 (1.0-2.1); ALBUMIN 4.3 g/dL (3.5-5.0); ALT/SGPT 64 U/L (9-52); AST/SGOT 25 U/L (14-36); BLOOD UREA NITROGEN 12 mg/dL (7-17); CALCIUM 9.3 mg/dl (8.6-10.4); GFR AFRICAN-AMERICAN > 60; GFR NON-AFRICAN AMERICAN > 60
[2018-05-28 04:47] LABS: INR 1.2; PROTHROMBIN TIME 13.6 SECONDS (9.7-12.2)
[2018-05-28 05:03] VITALS: BP 110/66; PULSE 81; TEMP 98.8; O2SAT 99
--- NOTE | 2018-05-28 09:54 | RAD ---
Date of service: 05/28/2018 HISTORY: FEVER COMPARISON: No prior. TECHNIQUE: Chest PA and lateral FINDINGS: LUNGS: No active pulmonary disease. PLEURA: No significant pleural effusion identified. No pneumothorax apparent. CARDIOVASCULAR: Normal. OSSEOUS STRUCTURES: No significant abnormalities. VISUALIZED UPPER ABDOMEN: Normal. OTHER FINDINGS: None. IMPRESSION: No acute cardiopulmonary disease appreciated.
--- NOTE | 2018-05-28 10:56 | US ---
Date of service: 05/28/2018 PROCEDURE: OB Pelvic Ultrasound HISTORY: threatened LMP: 03/23/2018 Serum beta HCG 6842.4 (previously 7043.3) COMPARISON: Pelvic ultrasound dated 05/26/2018. FINDINGS: UTERUS: Gestational sac: Elongated cystic structure within the lower uterine segment measuring 1.7 x 0.7 x 0.8 cm with subjacent hypoechoic area. Yolk sac: Possibly visualized, measuring 0.3 cm. pole: Not yet identified. Uterus measures 10.2 x 5.2 x 6.1 cm. Anteverted. Normal in size and appearance. CERVIX: Measures 3.0 cm. Long and closed. No cervical abnormality seen. RIGHT OVARY: Measures 3.6 x 2.0 x 2.1 cm. No mass lesion. Normal flow. LEFT OVARY: Measures 3.1 x 1.7 x 1.2 cm. No solid mass. Normal flow. FREE FLUID: None. OTHER FINDINGS: None. IMPRESSION: Similar appearance of elongated fluid collection within the lower uterine segment with possible yolk sac mass seen. Combined with decrease in serum beta HCG levels, findings likely represent an abnormal gestational sac and/or impending miscarriage. Close clinical follow-up with serial pelvic sonography and serum beta HCG levels is recommended.
== END 2018-05-28 05:03 | disposition home or self-care (01) ==
LOC: C.ER 21:40
DX: O03.4 Incomplete spontaneous abortion without complication (principal)
CPT/HCPCS: 71046; 76817; 80053; 81001; 84702; 84703; 85025; 85610; 85730; 86850; 86900; 96361; 96374; 96375; 99285; J1885; J3010; J7030

== ENCOUNTER 2018-05-30 18:32 | Emergency (ER) | payer OTHER ==
[2018-05-30 18:32] VITALS: BMI 28.5
[2018-05-30] MEDS ORDERED: Sodium Chloride 0.9% 1,000 ML IV ONE (19:06)
[2018-05-30] MEDS ORDERED: Sodium Chloride 0.9% 1,000 ML ONE (19:13)
[2018-05-30 19:19] LABS: BASO % 0.2 % (0.0-2.0); EOS # 0.1 K/uL (0.0-0.7); EOS % 0.9 % (0.0-4.0); HEMOGLOBIN 10.2 g/dL (11.0-16.0); LYMPH % 8.7 % (20.0-40.0); MEAN CELL VOLUME 90.5 fL (81.0-99.0); MEAN CORPUSCULAR HEMOGLOBIN 30.9 pg (27.0-31.0); MEAN CORPUSCULAR HGB CONC 34.2 g/dL (33.0-37.0); MEAN PLATELET VOLUME 8.3 fL (7.2-11.7); MONO % 8.4 % (0.0-10.0); NEUT # 9.2 K/uL (1.8-7.0); NEUT % 81.8 % (50.0-75.0); NRBC % 0.1 % (0.0-2.0); PLATELET COUNT 222 K/uL (130-400); RBC 3.29 Mil/uL (3.80-5.20); RED CELL DISTRIBUTION WIDTH 12.2 % (11.5-14.5); WHITE BLOOD COUNT 11.3 K/uL (4.8-10.8)
[2018-05-30 19:26] LABS: SQUAMOUS EPITHIAL 4 /hpf (0-5); URINE BACTERIA FEW (<OCC); URINE BILIRUBIN NEGATIVE (NEGATIVE); URINE BLOOD 3+ (NEGATIVE); URINE CLARITY Clear (Clear); URINE COLOR Yellow (YELLOW); URINE GLUCOSE (UA) NORMAL (Normal); URINE LEUKOCYTE ESTERASE TRACE Leu/uL (Negative); URINE PROTEIN NEGATIVE (NEGATIVE); URINE UROBILINOGEN NORMAL mg/dL (0.2-1.0)
[2018-05-30 19:26] LABS: VENOUS BLOOD GAS BASE EXCESS 1.3 mmol/L (0.0-2.0); VENOUS BLOOD GAS PCO2 36 mmHg (40-60); VENOUS BLOOD GAS PO2 29 mm/Hg (30-55); VENOUS BLOOD PH 7.45 (7.32-7.43)
[2018-05-30 19:45] LABS: LYMPHOCYTE 7 % (20-40); MONOCYTE 6 % (0-10); NEUTROPHIL 87 % (50-75); TOTAL CELLS COUNTED 100
[2018-05-30 19:46] LABS: PLATELET ESTIMATE NORMAL (NORMAL)
[2018-05-30 19:51] LABS: ALB/GLOB RATIO 1.3 (1.0-2.1); ALBUMIN 4.2 g/dL (3.5-5.0); ALT/SGPT 132 U/L (9-52); AST/SGOT 74 U/L (14-36); BLOOD UREA NITROGEN 8 mg/dL (7-17); GFR AFRICAN-AMERICAN > 60; GFR NON-AFRICAN AMERICAN > 60; LIPASE 44 U/L (23-300)
[2018-05-30 21:04] VITALS: O2SAT 100
[2018-05-30 22:06] VITALS: BP 103/66; PULSE 94; RESP 16; TEMP 99.9
--- NOTE | 2018-05-30 22:45 | C.PDOC ---
Time Seen by Provider: 05/30/18 18:58 Chief Complaint (Nursing): Fever History Per: Patient, Clinical Evaluator History/Exam Limitations: language barrier Onset/Duration Of Symptoms: Days (2) Current Symptoms Are (Timing): Still Present Associated Symptoms: Fever, Cough, Nausea, Vomiting, Other (Abdominal pain) Severity: Moderate Recent travel outside of the [place]: No Additional History Per: Prior Records Past Medical History Reviewed: Historical Data, Nursing Documentation, Vital Signs Vital Signs: Last Vital Signs Temp 99.9 F H 05/30/18 22:05 Pulse 94 H 05/30/18 22:05 Resp 16 05/30/18 22:05 BP 103/66 05/30/18 22:05 Pulse Ox 100 05/30/18 22:05 - Medical History PMH: No Chronic Diseases Other PMH: Pt is Surgical History: No Surg Hx - [facility] Procedures DELIVERY OF PRODUCTS OF CONCEPTION, EXTERNAL APPROACH (03/21/17) DRAINAGE OF AMNIOTIC FL, THERAP FROM POC, VIA OPENING (03/21/17) Family History: States: Unknown Family Hx - Social History Hx Tobacco Use: Yes Hx Alcohol Use: No Hx Substance Use: No - Immunization History Hx Tetanus Toxoid Vaccination: No Hx Influenza Vaccination: No Hx Pneumococcal Vaccination: No Review Of Systems Except As Marked, All Systems Reviewed And Found Negative. Constitutional: Positive for: Fever, Malaise ENT: Negative for: Ear Pain, Nose Congestion, Throat Pain Cardiovascular: Negative for: Chest Pain Respiratory: Positive for: Cough. Negative for: Shortness of Breath, Hemoptysis , Sputum Gastrointestinal: Positive for: Nausea, Vomiting, Abdominal Pain. Negative for : Diarrhea Genitourinary: Positive for: Vaginal Bleeding Musculoskeletal: Positive for: Back Pain. Negative for: Neck Pain Skin: Negative for: Rash Neurological: Negative for: Weakness, Numbness Physical Exam - Physical Exam Appears: Non-toxic, No Acute Distress Skin: Normal Color, Warm, Dry Head: Atraumatic, Normacephalic Eye(s): bilateral: Normal Inspection, PERRL, EOMI Oral Mucosa: Moist Neck: Normal ROM, Supple Cardiovascular: Rhythm Regular Respiratory: Normal Breath Sounds, No Accessory Muscle Use Gastrointestinal/Abdominal: Soft, Tenderness (nonspecific), No Guarding, No Rebound Extremity: Normal ROM, No Pedal Edema, No Calf Tenderness Neurological/Psych: Oriented x3, Normal Motor, Normal Sensation ED Course And Treatment - Laboratory Results Result Diagrams: 05/30/18 19:16 05/30/18 19:16 O2 Sat by Pulse Oximetry: 100 Pulse Ox Interpretation: Normal - Radiology CXR: Interpreted by Me, Viewed By Me CXR Interpretation: Yes: No Acute Disease - CT Scan/US Abdominal US Other Rad Studies (CT/US): Read By Radiologist, Radiology Report Reviewed CT/US Interpretation: IMPRESSION: 1. Diffuse hepatic steatosis. 2. Cholelithiasis. 3. Please note ultrasound has a low sensitivity in the detection of pyelonephritis. Pelvic US Other Rad Studies (CT/US): Read By Radiologist, Radiology Report Reviewed CT/US Interpretation: IMPRESSION: Complex fluid in the lower uterine segment in the same location as the previously seen gestational. sac on 05/28/2018 appears to represent retained products of conception versus trace residual. complex fluid. Reassessment Condition: Improved - Physician Consult Information Physician Contacted: Francine Liang (Vacuum Worker) Outcome Of Conversation: She examined pt in the ED. She does not believe pt has retained POC or pelvic infection. She believes fever is due to a virus. She recommeds pt be discharged home to follow up as outpatient. Progress - Interventions Interventions:: Observation, Intravenous fluid - Medications Administered Intravenous: Antiemetic, H-2 lex - Data Reviewed Data Reviewed: Lab, Diagnostic imaging, Old records - Patient Status Patient status: Mostly improved - Continuity of Care Discussed patient case with:: Patient, ED Nurse Discussed pt. case with middleware consultant/specialty: Obstetrics/Gynecology - Patient Plan Patient Plan: Discharge, F/U with PCP Disposition Counseled Patient/Family Regarding: Studies Performed, Diagnosis, Need For Followup - Disposition Referrals: [facility] [Outside] Disposition: HOME/ ROUTINE Disposition Time: 22:49 Condition: IMPROVED Additional Instructions: Drink plenty of fluids. Follow up in the clinic this week. Return to the ER if you develop worsening of symptoms or if you have any other concerns. Instructions: Fever, Adult (DC) Print Language: CYMRAES - Clinical Impression Clinical Impression: Fever, Abdominal pain, , Gallstones
--- NOTE | 2018-05-30 23:09 | CP.PCM.CON ---
History of Present Illness - History of Present Illness History of Present Illness: Pt is a 27yo lmp 03/23/18 with blighted ovum who presented to ed on 05/28 and 05/26. On 05/28 she presented w/ fever, cough and no c/o vag bleeding or pelvic pain. Qhcg was noted to be decreasing and us showed a 1cm gest sac. She stated that her children had been sick with fever and uri. She was given cytotec po x1 and treated for uri. She presents today with c/o fever at home. She denies cough. She states she has midepigastric pain and ruq pain and that she has h/o cholelithiasis. She states 1hr after taking cytotec she had heavy bleeding and painful cramps o . Since then she has scant dark red colored bleeding. She denies pelvic pain. NO coitus x 1wk. pmhx: denies obhx: x2 pshx: denies nkda medic: antibiotic for uri Review of Systems - Constitutional Constitutional: absent: Headache - EENT Nose/Mouth/Throat: absent: Nasal Congestion, Sinus Pain - Cardiovascular Cardiovascular: absent: Chest Pain - Respiratory Respiratory: absent: Dyspnea, Dyspnea on Exertion - Gastrointestinal Gastrointestinal: As Per HPI, Abdominal Pain, Vomiting - Genitourinary Genitourinary: absent: Difficulty Urinating, Urinary Incontinence, Urinary Urgency - Reproductive: Female Reproductive:Female: Normal Menses. absent: Dyspareunia Past Patient History - Infectious Disease Hx of Infectious Diseases: None - Past Social History Smoking Status: Never Smoked - PULMONARY Hx Asthma: No - PSYCHIATRIC Hx Substance Use: No - SURGICAL HISTORY Hx Surgeries: No - ANESTHESIA Hx Anesthesia: No Meds Allergies/Adverse Reactions: Allergies Allergy/AdvReac Type Severity Reaction Status Date / Time No Known Allergies Allergy Verified 05/30/18 18:38 Physical Exam - Constitutional Appears: Well, No Acute Distress - Head Exam Head Exam: ATRAUMATIC, NORMOCEPHALIC - Respiratory Exam Respiratory Exam: NORMAL BREATHING PATTERN - Exam External exam: NORMAL EXTERNAL EXAM Bimanual exam: NORMAL BIMANUAL EXAM (cvx: cl/th, no cmt.. uterus nt, small.. scant dark colored blood on glove.). absent: Adenexal Mass, Cervical Motion Tendernes, Uterine Enlargement, Uterine Tenderness Results - Vital Signs Recent Vital Signs: Last Vital Signs Temp 99.9 F H 05/30/18 22:05 Pulse 94 H 05/30/18 22:05 Resp 16 05/30/18 22:05 BP 103/66 05/30/18 22:05 Pulse Ox 100 05/30/18 22:51 - Labs Result Diagrams: 05/30/18 19:16 05/30/18 19:16 Labs: Laboratory Results - last 24 hr 05/30/18 05/30/18 05/30/18 19:16 19:16 19:16 WBC 11.3 H RBC 3.29 L Hgb 10.2 L D Hct 29.8 L MCV 90.5 MCH 30.9 MCHC 34.2 RDW 12.2 Plt Count 222 MPV 8.3 Neut % (Auto) 81.8 H Lymph % (Auto) 8.7 L [place] % (Auto) 8.4 Eos % (Auto) 0.9 Baso % (Auto) 0.2 Neut # (Auto) 9.2 H Lymph # (Auto) 1.0 [place] # (Auto) 1.0 H Eos # (Auto) 0.1 Baso # (Auto) 0.0 Neutrophils % (Manual) 87 H Lymphocytes % (Manual) 7 L Monocytes % (Manual) 6 Platelet Estimate Normal RBC Morphology Normal pO2 VBG pH VBG pCO2 VBG HCO3 VBG Total CO2 VBG O2 Sat (Calc) VBG Base Excess VBG Potassium Glucose Lactate Sodium Potassium Chloride Carbon Dioxide Anion Gap BUN Creatinine Est GFR ( Amer) Est GFR (Non-Af Amer) Random Glucose Calcium Total Bilirubin AST ALT Alkaline Phosphatase Total Protein Albumin Globulin Albumin/Globulin Ratio Lipase Beta HCG, Quant Venous Blood Potassium Urine Color Yellow Urine Clarity Clear Urine pH 8.0 Ur Specific Ute 1.009 Urine Protein Negative Urine Glucose (UA) Normal Urine Ketones Negative Urine Blood 3+ H Urine Nitrate Negative Urine Bilirubin Negative Urine Urobilinogen Normal Ur Leukocyte Esterase Trace Urine WBC (Auto) 4 Urine RBC (Auto) 9 H Ur Squamous Epith Cells 4 Urine Bacteria Few H Influenza Typ A,B (EIA) Negative for flu a/b 05/30/18 05/30/18 19:16 19:22 WBC RBC Hgb Hct MCV MCH MCHC RDW Plt Count MPV Neut % (Auto) Lymph % (Auto) [place] % (Auto) Eos % (Auto) Baso % (Auto) Neut # (Auto) Lymph # (Auto) [place] # (Auto) Eos # (Auto) Baso # (Auto) Neutrophils % (Manual) Lymphocytes % (Manual) Monocytes % (Manual) Platelet Estimate RBC Morphology pO2 29 L VBG pH 7.45 H VBG pCO2 36 L VBG HCO3 24.9 VBG Total CO2 26.1 VBG O2 Sat (Calc) 62.4 VBG Base Excess 1.3 VBG Potassium 3.7 Glucose 113 H Lactate 1.0 Sodium 139 136.0 Potassium 3.6 Chloride 100 102.0 Carbon Dioxide 24 Anion Gap 18 BUN 8 Creatinine 0.8 Est GFR ( Amer) > 60 Est GFR (Non-Af Amer) > 60 Random Glucose 114 H Calcium 9.0 Total Bilirubin 0.4 AST 74 H D ALT 132 H D Alkaline Phosphatase 87 Total Protein 7.5 Albumin 4.2 Globulin 3.3 Albumin/Globulin Ratio 1.3 Lipase 44 Beta HCG, Quant 2852.20 Venous Blood Potassium 3.7 Urine Color Urine Clarity Urine pH Ur Specific Ute Urine Protein Urine Glucose (UA) Urine Ketones Urine Blood Urine Nitrate Urine Bilirubin Urine Urobilinogen Ur Leukocyte Esterase Urine WBC (Auto) Urine RBC (Auto) Ur Squamous Epith Cells Urine Bacteria Influenza Typ A,B (EIA) - Imaging and Cardiology US - abdomen Status: Image reviewed by me, Report reviewed by me (pelvic us trace fluid in lower uterine segment) Assessment & Plan - Assessment and Plan (Free Text) Assessment: Impression: Complete AB Fever - most likely viral P: f/w with obgyn clinic within 1wk pelvic rest until next menses
--- NOTE | 2018-05-31 08:52 | US ---
Date of service: 05/30/2018 HISTORY: Fever, pain, . LMP: 03/23/2018. GA by LMP: 9 weeks 5 days. COMPARISON: Comparison is made to the previous study dated 05/28/2018 TECHNIQUE: Transvaginal ultrasound examination of the pelvis was performed. FINDINGS: UTERUS: Measures 9.6 x 5.1 x 5.8 cm. Normal in size and appearance. No fibroid or other mass lesion seen. ENDOMETRIUM: Interval decrease in the size of the complex fluid collection at the lower low trains segment since the previous exam measures 0.9 x 0.5 x0.9 centimeter (was measured 1.7 x 0.7 x 0.8 centimeter in the previous exam). The possibility of retained product of conception should be considered. No evidence of significant interval change otherwise. CERVIX: No cervical abnormality identified. RIGHT OVARY: Measures 3.2 x 1.8 x 3.2 cm. No solid mass. Normal flow. LEFT OVARY: Measures 2.9 x 2.8 x 1.4 cm. No solid mass. Normal flow. FREE FLUID: No significant free fluid noted. OTHER FINDINGS: None. IMPRESSION: Interval decrease in the size of the complex fluid noted at the lower uterine segment since the previous exam. The possibility of retained product of conception cannot be totally excluded. No ultrasound evidence of intrauterine live . Otherwise no interval change. Preliminary report was submitted by [facility].
--- NOTE | 2018-05-31 08:58 | US ---
Date of service: 05/30/2018 HISTORY: Abd pain, fever, , cholecystitis vs pyelo? COMPARISON: Comparison is made to the previous ultrasound study dated 03/13/[address] of the abdomen and pelvis dated 04/04/2018 TECHNIQUE: Sonographic evaluation of the abdomen. FINDINGS: LIVER: Measures 17.9 cm. Increased echogenicity of the liver parenchyma. No mass. No intrahepatic bile duct dilatation. GALLBLADDER: Cholelithiasis again noted without evidence of acute cholecystitis COMMON BILE DUCT: Measures 5 mm. No stones. No dilatation. PANCREAS: Unremarkable as visualized. No mass. No ductal dilatation. RIGHT KIDNEY: Measures 11 x 4.9 x 6.3cm. Normal echogenicity. No calculus, mass, or hydronephrosis. LEFT KIDNEY: Measures 12.6 x 5.9 x 5.2cm. Normal echogenicity. No calculus, mass, or hydronephrosis. SPLEEN: Normal in size and contour. No mass. AORTA: No aneurysmal dilatation. IVC: Unremarkable. OTHER FINDINGS: None. IMPRESSION: Mild hepatomegaly and findings suggestive of moderate hepatic steatosis. Cholelithiasis without evidence of cholecystitis. Preliminary report was submitted by [facility].
--- NOTE | 2018-05-31 15:22 | RAD ---
Date of service: 05/30/2018 HISTORY: Fever COMPARISON: Comparison is made with 05/28/2018 FINDINGS: LUNGS: No active pulmonary disease. PLEURA: No significant pleural effusion identified, no pneumothorax apparent. CARDIOVASCULAR: Normal. OSSEOUS STRUCTURES: No significant abnormalities. VISUALIZED UPPER ABDOMEN: Normal. OTHER FINDINGS: None. IMPRESSION: No active disease.
== END 2018-05-30 23:02 | disposition home or self-care (01) ==
LOC: C.ER 18:32
DX: O03.9 Complete or unspecified spontaneous abortion without complication (principal); K80.80 Other cholelithiasis without obstruction; R50.9 Fever, unspecified; R10.9 Unspecified abdominal pain
CPT/HCPCS: 71045; 76700; 76830; 80053; 81001; 82803; 83690; 84702; 85025; 87040; 87086; 87181; 87804; 96361; 96374; 96375; 99285; J2765; J7030

== ENCOUNTER 2018-07-22 22:22 | Emergency (ER) | payer OTHER ==
[2018-07-22 22:22] VITALS: BMI 28.5
[2018-07-22 22:35] VITALS: O2SAT 100
--- NOTE | 2018-07-22 22:36 | C.PDOC ---
History Of Present Illness 27 y/o female w/ hx of biliary colic presents to the ED complaining of worsening RUQ abdominal pain, onset around 5:00pm. Pain is radiating to the back. Patient states she has been seen in the clinic for similar pain, and had an ultrasound showing gall stones. She followed up with a surgeon and they were planning to schedule outpatient surgery. States she took motrin around 5pm and again at 7pm without relief, prompting her to come in for further evaluation. Also reports having some dysuria and 2 episodes of non-bloody diarrhea today. No recent travel or recent abx. No other prior history. Patient otherwise denies any nausea, vomiting, dark stool, fever, chills, or other complaints. LMP was 07/01/18, normal. 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 (Turkish interpretation via RUFUS Mcpherson) History/Exam Limitations: no limitations Onset/Duration Of Symptoms: Hrs Current Symptoms Are (Timing): Still Present Location Of Pain/Discomfort: RUQ Radiation Of Pain To:: Back Quality Of Discomfort: "Pain" Associated Symptoms: Diarrhea, Urinary Symptoms Alleviating Factors: None Past Medical History Reviewed: Historical Data, Nursing Documentation, Vital Signs Vital Signs: Last Vital Signs Temp 98.1 F 07/23/18 02:32 Pulse 76 07/23/18 02:32 Resp 20 07/23/18 02:32 BP 120/65 07/23/18 02:32 Pulse Ox 100 07/23/18 03:00 - Medical History PMH: Gall Bladder Disease Denies: Anxiety, Asthma - [facility] Procedures DELIVERY OF PRODUCTS OF CONCEPTION, EXTERNAL APPROACH (03/21/17) DRAINAGE OF AMNIOTIC FL, THERAP FROM POC, VIA OPENING (03/21/17) Family History: States: Unknown Family Hx - Social History Hx Tobacco Use: Yes Hx Alcohol Use: No Hx Substance Use: No - Immunization History Hx Tetanus Toxoid Vaccination: No Hx Influenza Vaccination: No Hx Pneumococcal Vaccination: No Review Of Systems Constitutional: Negative for: Fever, Chills, Sweats Respiratory: Negative for: Shortness of Breath Gastrointestinal: Positive for: Abdominal Pain, Diarrhea (x2). Negative for: Nausea, Vomiting, Melena, Hematochezia Genitourinary: Positive for: Dysuria. Negative for: Incontinence, Hematuria, Vaginal Bleeding Skin: Negative for: Rash Neurological: Negative for: Dizziness Physical Exam - Physical Exam Appears: Non-toxic, No Acute Distress Skin: Warm, Dry Head: Atraumatic, Normacephalic Eye(s): bilateral: Normal Inspection, PERRL, EOMI Oral Mucosa: Moist Neck: Normal, Normal ROM, Trachea Midline, No Midline Cervical Tenderness, No Paracervical Tenderness, Supple, Other (negative kernig's and brudzinskis) Chest: Symmetrical Cardiovascular: Rhythm Regular, Other (No rub) Respiratory: No Rales, No Rhonchi, No Wheezing Gastrointestinal/Abdominal: Soft, Tenderness (to the RUQ and epigastrium), No Guarding, No Rebound Back: Normal Inspection, No CVA Tenderness, No Vertebral Tenderness Extremity: Bilateral: Atraumatic, Normal Color And Temperature, Normal ROM Pulses: Left Dorsalis Pedis: Normal, Right Dorsalis Pedis: Normal Neurological/Psych: Oriented x3, Normal Speech Gait: Steady ED Course And Treatment - Laboratory Results Result Diagrams: 07/22/18 23:56 07/22/18 23:56 O2 Sat by Pulse Oximetry: 100 (on RA) Pulse Ox Interpretation: Normal Against Medical Advice - AMA Patient Left Against Medical Advice: The patient declines admission to the hospital and wishes to leave the Emergency Department. This action is against my medical advice. This decision was made with informed refusal. The patient was told that admission to the hospital is necessary. Explanation of the reasons why were discussed. The risks of leaving were explained to the patient and include, but are not limited to, worsening of known or currently unknown conditions, permanent disability and from undiagnosed or untreated conditions. The patient has the capacity to make this informed decision and understands my explanation of the current medical problem and risks of leaving. The patient voluntarily accepts these risks and signed an AMA form documenting our conversation. The patient was given the opportunity to ask questions and reconsider. The patient was encouraged to return to the Emergency Department at any time for further care. Medical Decision Making Medical Decision Making: Impression: 27 y/o female with complaints of RUQ pain radiating to back, known hx of gall stones diagnosed in the clinic. Patient cannot recall which surgeon she saw. Pt notes that she would be unwilling to stay for surgery or surgical consultation given she has children to take care of: endorsed to patient that we need to see labs and imaging as well as reassess pain. Pt endorsed understanding. No vaginal d/c. Plan: --VBG --CMP --Lipase --CBC --Urinalysis --Urine preg --Abdominal US (RUQ) --Tylenol 650 mg PO --NSS IV fluids --Reassess and dispo 1249 Labs: largely unremarkable. No elevated LFTS/ Lipase or Tbili. UA: UTI No CVAT on exam. Afebrile- likely UTI Pending US 0230 Informed by RN that patient is choosing to leave AMA. Still pending ultrasound results. I endorsed to the patient throught a tape editor RN that she could potentially or be permanently disabled given the possibility of cholecystitis. She noted that she had to go home to take care of her child. I endorsed to her again that she might need emergent surgery, however pt notes that she must go home and is feeling ok to go home. I endorsed that she had a UTI and will treat it as well as her vomiting and she notes she will stay for scripts but no meds here, and will not wait for ultrasound results. Pt has normal affect, no SI, no HI and signed witnessed AMA. AMA (treatment): The patient declines to have further medical evaluation and treatment and wishes to leave the Emergency Department. This action is against my medical advice to the patient, and with informed refusal. The patient was told that evaluation and treatment are necessary and a full explanation of the rationale was given. The risks of leaving were explained to the patient and include, but are not limited to, worsening of known or currently unknown conditions, permanent disability and from undiagnosed or untreated conditions The patient has the capacity to make this informed decision and understands the clinical situation and my explanation of the risks of leaving. The patient voluntarily accepts these risks, and a signed AMA form documenting our conversation was obtained. The patient was given the opportunity to ask questions and reconsider. The patient was encouraged to return to the Emergency Department at any time for further care. Disposition - Disposition Referrals: THIS ER, [facility] [Other] [facility] [Outside] Non [facility] Provider, [Non-Staff] - Naveed Jamison MD [Staff Provider] - Disposition: AGAINST MEDICAL ADVICE Disposition Time: 02:30 Condition: GUARDED Additional Instructions: YOU ARE SIGNING OUT AGAINST MEDICAL ADVICE. COME BACK SOON POSSIBLE FOR FURTHER WORKUP. Prescriptions: Ciprofloxacin [Cipro] 250 mg PO BID 3 Days #6 tab Ondansetron ODT [Zofran ODT] 4 mg PO BID PRN 2 Days #4 odt PRN Reason: Other Instructions: Acute Abdomen (Belly Pain), Adult (DC), Acute Cystitis (DC) Forms: [facility] (Spanish) Print Language: PASHTO - Clinical Impression Clinical Impression: Abdominal pain, UTI (urinary tract infection) - Scribe Statement The provider has reviewed the documentation as recorded by the Scribe (Lindsay Whiting) Provider Attestation: All medical record entries made by the Scribe were at my direction and personally dictated by me. I have reviewed the chart and agree that the record accurately reflects my personal performance of the history, physical exam, medical decision making, and the department course for this patient. I have also personally directed, reviewed, and agree with the discharge instructions and disposition.
[2018-07-22] MEDS ORDERED: Sodium Chloride 0.9% 1,000 ML IV ONE (23:33)
[2018-07-22 23:59] LABS: BASO # 0.1 K/uL (0.0-0.2); BASO % 0.7 % (0.0-2.0); EOS # 0.5 K/uL (0.0-0.7); EOS % 5.4 % (0.0-4.0); LYMPH # 2.4 K/uL (1.0-4.3); LYMPH % 26.2 % (20.0-40.0); MEAN CELL VOLUME 87.9 fL (81.0-99.0); MEAN CORPUSCULAR HEMOGLOBIN 30.4 pg (27.0-31.0); MEAN CORPUSCULAR HGB CONC 34.6 g/dL (33.0-37.0); MEAN PLATELET VOLUME 8.6 fL (7.2-11.7); MONO # 0.8 K/uL (0.0-0.8); MONO % 8.5 % (0.0-10.0); NEUT # 5.4 K/uL (1.8-7.0); NEUT % 59.2 % (50.0-75.0); RBC 3.96 Mil/uL (3.80-5.20); WHITE BLOOD COUNT 9.2 K/uL (4.8-10.8)
[2018-07-23 00:11] LABS: VENOUS BLOOD GAS BASE EXCESS 2.8 mmol/L (0.0-2.0); VENOUS BLOOD GAS PCO2 47 mmHg (40-60); VENOUS BLOOD GAS PO2 43 mm/Hg (30-55); VENOUS BLOOD PH 7.39 (7.32-7.43)
[2018-07-23 00:17] LABS: ALB/GLOB RATIO 1.4 (1.0-2.1); ALBUMIN 4.3 g/dL (3.5-5.0); ALT/SGPT 45 U/L (9-52); AST/SGOT 24 U/L (14-36); BLOOD UREA NITROGEN 14 mg/dL (7-17); CALCIUM 9.3 mg/dl (8.6-10.4); GFR NON-AFRICAN AMERICAN > 60; LIPASE 100 U/L (23-300)
[2018-07-23 00:38] LABS: SQUAMOUS EPITHIAL 5 /hpf (0-5); URINE BACTERIA OCC (<OCC); URINE BILIRUBIN NEGATIVE (NEGATIVE); URINE BLOOD NEGATIVE (NEGATIVE); URINE CLARITY Hazy (Clear); URINE COLOR Yellow (YELLOW); URINE GLUCOSE (UA) NORMAL (Normal); URINE LEUKOCYTE ESTERASE 3+ Leu/uL (Negative); URINE PROTEIN 1+ mg/dL (NEGATIVE); URINE UROBILINOGEN NORMAL mg/dL (0.2-1.0)
[2018-07-23] MEDS ORDERED: Morphine 4 MG/ML VIAL IV ONE (01:05)
[2018-07-23] MEDS ORDERED: Morphine 4 MG/ML VIAL ONE (01:12)
[2018-07-23 02:32] VITALS: BP 120/65; PULSE 76; RESP 20; TEMP 98.1
--- NOTE | 2018-07-23 08:54 | US ---
Right upper quadrant abdominal ultrasound HISTORY: Cholelithiasis. COMPARISON: Ultrasound dated 05/30/2018 Technique: Real-time sonography was performed through the right upper quadrant of the abdomen. Findings: Liver: 21.5 centimeters in length. Increased echogenicity of the hepatic parenchymal cortex suggestive for fatty infiltration versus hepatic parenchymal disease. Clinical correlation. Gallbladder: Cholelithiasis and sludge in the gallbladder. Normal gallbladder wall thickness of 2.4 millimeters. Negative sonographic Vincent's sign. Prominent common bile duct measuring up to 5.5 millimeters. Structure adjacent to the common bile duct measuring 1.3 centimeters, question dilated cystic duct. Limited visualization of the pancreas. Visualized aorta and IVC are preserved. Right kidney: 10.4 x 4.2 x 5.4 centimeters. No calculi or hydronephrosis. Impression: Cholelithiasis and sludge in the gallbladder. Normal wall thickness of 2.4 millimeters. Negative sonographic Vincent's sign. Clinical correlation. Prominent liver measuring 21.5 centimeters in length. Increased echogenicity of the hepatic parenchymal cortex suggestive for fatty infiltration versus hepatic parenchymal disease. Clinical correlation. Prominent common bile duct measuring up to 5.5 millimeters. Structure adjacent to the common bile duct measuring 1.3 centimeters, question dilated cystic duct. Clinical correlation. Correlation with ERCP and or MRCP may be helpful for further evaluation if clinically indicated. Limited visualization of the pancreas. These findings were preliminarily reported at 2:45 a.m. on 07/23/[address] Mirian Ho from [facility].
== END 2018-07-23 02:50 | disposition left against medical advice (07) ==
LOC: C.ER 22:22 → SUPCPDRO 22:22 → C.ER 07-23 02:50
DX: N39.0 Urinary tract infection, site not specified (principal); R10.11 Right upper quadrant pain; Z72.0 Tobacco use
CPT/HCPCS: 76705; 80053; 81001; 82803; 83690; 85025; 96360; 96374; 99285; J2270; J7030

== ENCOUNTER 2018-09-16 03:17 | Emergency (ER) | payer OTHER ==
[2018-09-16 03:17] VITALS: BMI 34.2
[2018-09-16 03:29] VITALS: PULSE 69; RESP 18; O2SAT 98
[2018-09-16] MEDS ORDERED: Sodium Chloride 0.9% 500 ML IV ONE (03:49)
[2018-09-16] MEDS ORDERED: Sodium Chloride 0.9% 1,000 ML ONE (03:59)
[2018-09-16 04:05] LABS: BASO % 0.4 % (0.0-2.0); EOS # 0.2 K/uL (0.0-0.7); EOS % 2.7 % (0.0-4.0); HEMOGLOBIN 13.3 g/dL (11.0-16.0); LYMPH # 2.7 K/uL (1.0-4.3); MEAN CELL VOLUME 85.9 fL (81.0-99.0); MEAN CORPUSCULAR HEMOGLOBIN 28.9 pg (27.0-31.0); MEAN CORPUSCULAR HGB CONC 33.6 g/dL (33.0-37.0); MEAN PLATELET VOLUME 8.5 fL (7.2-11.7); MONO # 0.7 K/uL (0.0-0.8); MONO % 7.9 % (0.0-10.0); NEUT # 5.1 K/uL (1.8-7.0); RBC 4.62 Mil/uL (3.80-5.20); RED CELL DISTRIBUTION WIDTH 13.5 % (11.5-14.5); WHITE BLOOD COUNT 8.8 K/uL (4.8-10.8)
[2018-09-16 04:09] LABS: SQUAMOUS EPITHIAL 6 /hpf (0-5); URINE BACTERIA MANY (<OCC); URINE BILIRUBIN NEGATIVE (NEGATIVE); URINE BLOOD 1+ (NEGATIVE); URINE CLARITY Hazy (Clear); URINE COLOR Yellow (YELLOW); URINE GLUCOSE (UA) NORMAL (Normal); URINE LEUKOCYTE ESTERASE 3+ Leu/uL (Negative); URINE PROTEIN NEGATIVE (NEGATIVE); URINE UROBILINOGEN NORMAL mg/dL (0.2-1.0)
[2018-09-16 04:17] LABS: ALB/GLOB RATIO 1.5 (1.0-2.1); ALBUMIN 4.4 g/dL (3.5-5.0); ALT/SGPT 40 U/L (9-52); AST/SGOT 22 U/L (14-36); BLOOD UREA NITROGEN 14 mg/dL (7-17); CALCIUM 8.9 mg/dl (8.6-10.4); GFR NON-AFRICAN AMERICAN > 60; LIPASE 177 U/L (23-300)
[2018-09-16 04:23] LABS: HCG,QUALITATIVE URINE NEGATIVE (NEGATIVE)
--- NOTE | 2018-09-16 05:03 | C.PDOC ---
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 Patient has been seen in several times in the ER for the same, last time in 07/2018, had positive gallstones on US, labs were within normal limits, advised to follow up with clinic. Patient states she was seen at the clinic but has not had the chance to make an appointment with specialist. Denies fever or chills. Time Seen by Provider: 09/16/18 03:34 Chief Complaint (Nursing): Abdominal Pain History Per: Patient History/Exam Limitations: no limitations Onset/Duration Of Symptoms: Hrs Current Symptoms Are (Timing): Still Present Context: Food Location Of Pain/Discomfort: RUQ Radiation Of Pain To:: None Quality Of Discomfort: Unable To Describe Associated Symptoms: Nausea, Vomiting (x1). denies: Fever, Chills Exacerbating Factors: None Alleviating Factors: None Recent travel outside of the [place]: No Past Medical History Reviewed: Historical Data, Nursing Documentation, Vital Signs Vital Signs: Last Vital Signs Temp 98.6 F 09/16/18 03:23 Pulse 69 09/16/18 03:23 Resp 18 09/16/18 03:23 BP 111/65 09/16/18 03:23 Pulse Ox 98 09/16/18 03:23 - Medical History PMH: Gall Bladder Disease Denies: Anxiety, Asthma - [facility] Procedures DELIVERY OF PRODUCTS OF CONCEPTION, EXTERNAL APPROACH (03/21/17) DRAINAGE OF AMNIOTIC FL, THERAP FROM POC, VIA OPENING (03/21/17) Family History: States: Unknown Family Hx - Social History Hx Tobacco Use: Yes Hx Alcohol Use: No Hx Substance Use: No - Immunization History Hx Tetanus Toxoid Vaccination: No Hx Influenza Vaccination: No Hx Pneumococcal Vaccination: No Review Of Systems Constitutional: Negative for: Fever, Chills Respiratory: Negative for: Cough Gastrointestinal: Positive for: Nausea, Vomiting (x1), Abdominal Pain Genitourinary: Negative for: Dysuria, Hematuria Physical Exam - Physical Exam Appears: Non-toxic Skin: Normal Color, Warm, Dry Head: Atraumatic, Normacephalic Eye(s): bilateral: Normal Inspection Oral Mucosa: Moist Neck: Normal, Supple Chest: Symmetrical, No Tenderness Cardiovascular: Rhythm Regular Respiratory: Normal Breath Sounds, No Rales, No Rhonchi, No Wheezing Gastrointestinal/Abdominal: Soft, Tenderness (RUQ), No Guarding, No Rebound, Other (Obese) Back: No CVA Tenderness Neurological/Psych: Oriented x3, Normal Speech ED Course And Treatment - Laboratory Results Result Diagrams: 09/16/18 04:00 09/16/18 04:00 O2 Sat by Pulse Oximetry: 98 (room air) Pulse Ox Interpretation: Normal Progress Note: Blood work and urinalysis ordered, results were positive for UTI. IV fluids, toradol, and zofran administered. On reevaluation, patient is resting comfortably in the ER in no acute distress, tolerating PO, vitals are stable. Labs reviewed with patient who has referral letter from Dr. Gan for surgery, advised to follow up with surgeon outpatient, continue NSAIDs for pain and diet control, patient understands and agrees with pain. Disposition Counseled Patient/Family Regarding: Diagnosis, Need For Followup - Disposition Referrals: Christiano Cameron MD [Staff Provider] - Disposition: HOME/ ROUTINE Disposition Time: 04:59 Condition: STABLE Additional Instructions: Take motrin for [ain Avoid greasy, fried foods prior to bedtime MAke appointment with surgeon Return to ER IF PAIN WORSENS, IF FEVER, VOMITING OR WORSE Prescriptions: Ibuprofen [Motrin] 600 mg PO Q6H #30 tab Nitrofurantoin Macrocrystals [Macrobid] 1 cap PO BID #14 cap Instructions: Gallstones (DC) Forms: [facility] (Hungarian) Print Language: YAKUT - Clinical Impression Clinical Impression: Biliary colic, UTI (urinary tract infection) - PA / TAPERING MACHINE OPERATOR / Resident Statement MD/DO has reviewed & agrees with the documentation as recorded. - Scribe Statement The provider has reviewed the documentation as recorded by the Scribe Jg Diggs All medical record entries made by the Isabelleibandrea were at my direction and personally dictated by me. I have reviewed the chart and agree that the record accurately reflects my personal performance of the history, physical exam, medical decision making, and the department course for this patient. I have also personally directed, reviewed, and agree with the discharge instructions and disposition.
[2018-09-16 05:37] VITALS: BP 113/72; TEMP 98.3
== END 2018-09-16 05:17 | disposition home or self-care (01) ==
LOC: C.ER 03:17
DX: K80.70 Calculus of gallbladder and bile duct without cholecystitis without obstruction (principal); N39.0 Urinary tract infection, site not specified
CPT/HCPCS: 80053; 81001; 83690; 84703; 85025; 96361; 96374; 96375; 99284; J1885; J2405; J7040

== ENCOUNTER 2018-11-28 21:38 | Emergency (ER) | payer OTHER ==
[2018-11-28 21:39] VITALS: BMI 33.6
[2018-11-28 21:51] VITALS: BP 127/77; PULSE 100; RESP 20; TEMP 98.2; O2SAT 96
--- NOTE | 2018-11-28 23:29 | C.PDOC ---
History Of Present Illness 28 year old female presents to the ED for evaluation. Patient states she was running and tripped on her shoelaces which caused her to fall and landed face first in the pavement. Patient denies LOC, visual changes, nose bleed, neck pain, nausea, vomit, visual changes, weakness, numbness. - HPI Time Seen by Provider: 11/28/18 21:59 Chief Complaint (Nursing): Trauma History Per: Patient History/Exam Limitations: no limitations Onset/Duration Of Symptoms: Hrs Injury Occurred (Timing): Just Before Arrival Location Of Injury: Anterior: Face Severity: None Recent travel outside of the [place]: No Additional History Per: Patient - Fall Fall:Prior To Injury: Tripped Past Medical History Reviewed: Historical Data, Nursing Documentation, Vital Signs Vital Signs: Last Vital Signs Temp 98.2 F 11/28/18 21:49 Pulse 100 H 11/28/18 21:49 Resp 20 11/28/18 21:49 BP 127/77 11/28/18 21:49 Pulse Ox 96 11/28/18 21:49 - Medical History PMH: Gall Bladder Disease Denies: Anxiety, Asthma, HIV, Chronic Kidney Disease Surgical History: Cholecystectomy - [facility] Procedures DELIVERY OF PRODUCTS OF CONCEPTION, EXTERNAL APPROACH (03/21/17) DRAINAGE OF AMNIOTIC FL, THERAP FROM POC, VIA OPENING (03/21/17) Family History: States: Unknown Family Hx - Social History Hx Tobacco Use: Yes Hx Alcohol Use: No Hx Substance Use: No - Immunization History Hx Tetanus Toxoid Vaccination: No Hx Influenza Vaccination: No Hx Pneumococcal Vaccination: No Review Of Systems Constitutional: Negative for: Fever, Chills Eyes: Negative for: Vision Change ENT: Positive for: Nose Pain. Negative for: Nose Discharge, Nose Congestion Cardiovascular: Negative for: Chest Pain Respiratory: Negative for: Cough, Shortness of Breath Gastrointestinal: Negative for: Nausea, Abdominal Pain Musculoskeletal: Negative for: Neck Pain Skin: Negative for: Rash Neurological: Positive for: Headache. Negative for: Weakness, Numbness, Dizziness Physical Exam - Physical Exam Appears: Non-toxic, No Acute Distress Skin: Normal Color, Warm, Dry Head: Normacephalic, No Laceration, Other (mid forehead hematoma with small excoriation) Eye(s): bilateral: Normal Inspection, PERRL, EOMI Nose: No Epistaxis, No Deformity, Tenderness (nasal bone), No Septal Hematoma, Other (nose tip erythema) Oral Mucosa: Moist Tongue: No Bleeding Lips: No Laceration Teeth: No Tender To Palpation Gingiva: No Bleeding Neck: Normal ROM, No Midline Cervical Tenderness, Supple Chest: Symmetrical Cardiovascular: Rhythm Regular Respiratory: Normal Breath Sounds, No Rales, No Rhonchi, No Wheezing Extremity: Normal ROM, No Tenderness, No Swelling Neurological/Psych: Oriented x3, Normal Speech, Normal Cognition Gait: Steady ED Course And Treatment O2 Sat by Pulse Oximetry: 96 (ON RA) Pulse Ox Interpretation: Normal - Other Rad Nasal bone X-Ray X-Ray: Interpreted by Me, Viewed By Me Interpretation: Small Nondisplaced nasal bone fracture Progress Note: Plan: - Motrin 600 mg PO. - Nasal bone X-Ray. Patient's imaging results were discuseed. Patient is stable, states pain has improved with pain medication. Return precautions were discussed and patient was advised to follow up with PMD. Disposition - Disposition Referrals: [facility] at [facility] [Outside] Jayce Marcos MD [Staff Provider] - Disposition: HOME/ ROUTINE Disposition Time: 23:30 Condition: GOOD Additional Instructions: Apply ICE to area Take motrin for pain Follow up in clinic Return to ER if severe headache, dizziness, lethargy or worse Prescriptions: Ibuprofen [Motrin] 600 mg PO Q6H #30 tab Instructions: Minor Head Injury (DC), Nose Fracture (DC) Forms: [employer] (Yakut) Print Language: ITALIAN - Clinical Impression Clinical Impression: Nasal bone fracture - PA / MOTOR GENERATOR SET OPERATOR / Resident Statement MD/DO has reviewed & agrees with the documentation as recorded. - Scribe Statement The provider has reviewed the documentation as recorded by the Scribe Martin Moore All medical record entries made by the Scribe were at my direction and personally dictated by me. I have reviewed the chart and agree that the record accurately reflects my personal performance of the history, physical exam, medical decision making, and the department course for this patient. I have also personally directed, reviewed, and agree with the discharge instructions and disposition.
--- NOTE | 2018-11-29 09:25 | RAD ---
Bilateral nasal bones HISTORY: Fall. Comparison: None available. Findings: Lucencies through the bilateral nasal bones suggestive for possible nondisplaced fractures. Correlation with facial CT may be helpful if clinically indicated. Impression: Lucencies through the bilateral nasal bones suggestive for possible nondisplaced fractures. Correlation with facial CT may be helpful if clinically indicated.
== END 2018-11-28 23:37 | disposition home or self-care (01) ==
LOC: C.ER 21:38
DX: S02.2XXA Fracture of nasal bones, initial encounter for closed fracture (principal); W01.0XXA Fall on same level from slipping, tripping and stumbling without subsequent striking against object, initial encounter; Y93.02 Activity, running

== ENCOUNTER 2019-04-03 09:59 | Observation (INO) | payer OTHER ==
[2019-04-03 09:59] VITALS: BMI 33.6
[2019-04-03 10:06] VITALS: RESP 20
[2019-04-03] MEDS ORDERED: Sodium Chloride 0.9% 1,000 ML IV ONE ×2 (10:23→14:27)
[2019-04-03] MEDS ORDERED: Sodium Chloride 0.9% 1,000 ML ONE ×3 (10:32→16:31)
[2019-04-03 10:57] LABS: BASO % 0.3 % (0.0-2.0); EOS # 0.2 K/uL (0.0-0.7); EOS % 1.2 % (0.0-4.0); LYMPH # 1.4 K/uL (1.0-4.3); LYMPH % 7.6 % (20.0-40.0); MEAN CORPUSCULAR HEMOGLOBIN 31.9 pg (27.0-31.0); MEAN CORPUSCULAR HGB CONC 35.6 g/dL (33.0-37.0); MEAN PLATELET VOLUME 9.2 fL (7.2-11.7); MONO # 0.9 K/uL (0.0-0.8); MONO % 4.6 % (0.0-10.0); NEUT # 16.4 K/uL (1.8-7.0); NEUT % 86.3 % (50.0-75.0); PLATELET COUNT 276 K/uL (130-400); RBC 4.87 Mil/uL (3.80-5.20); RED CELL DISTRIBUTION WIDTH 13.1 % (11.5-14.5)
[2019-04-03 11:00] LABS: HEMOGLOBIN 15.6 g/dL (11.0-16.0); MEAN CELL VOLUME 89.7 fL (81.0-99.0)
[2019-04-03 11:01] LABS: HCG,QUALITATIVE URINE NEGATIVE (NEGATIVE)
[2019-04-03 11:10] LABS: SQUAMOUS EPITHIAL 3 /hpf (0-5); URINE BACTERIA RARE (<OCC); URINE BILIRUBIN NEGATIVE (NEGATIVE); URINE BLOOD NEGATIVE (NEGATIVE); URINE CLARITY Hazy (Clear); URINE COLOR Yellow (YELLOW); URINE GLUCOSE (UA) NORMAL (Normal); URINE LEUKOCYTE ESTERASE NEG Leu/uL (Negative); URINE PROTEIN NEGATIVE (NEGATIVE); URINE UROBILINOGEN NORMAL mg/dL (0.2-1.0)
[2019-04-03 11:14] LABS: ALB/GLOB RATIO 1.3 (1.0-2.1); ALBUMIN 4.7 g/dL (3.5-5.0); ALT/SGPT 81 U/L (9-52); AST/SGOT 56 U/L (14-36); BLOOD UREA NITROGEN 14 mg/dL (7-17); CALCIUM 9.4 mg/dl (8.6-10.4); GFR NON-AFRICAN AMERICAN > 60; LIPASE 106 U/L (23-300)
--- NOTE | 2019-04-03 11:18 | C.PDOC ---
History Of Present Illness 28 y/o female pt presents to the ER c/o epigastric abdominal pain since yesterday. Associated sx includes nausea, vomiting and diarrhea. Pt denies dysuria, hematuria, fever, vaginal bleeding and vaginal discharge. Time Seen by Provider: 04/03/19 10:16 Chief Complaint (Nursing): Abdominal Pain History Per: Patient History/Exam Limitations: no limitations Onset/Duration Of Symptoms: Days (x1) Current Symptoms Are (Timing): Still Present Location Of Pain/Discomfort: Epigastric Past Medical History Reviewed: Historical Data, Nursing Documentation, Vital Signs Vital Signs: Last Vital Signs Temp 98.9 F 04/03/19 10:04 Pulse 104 H 04/03/19 10:04 Resp 20 04/03/19 10:04 BP 110/73 04/03/19 10:04 Pulse Ox 98 04/03/19 10:04 Primary Care Provider: FAMILY PROVIDER,NO - Medical History PMH: Gall Bladder Disease Surgical History: Cholecystectomy - [facility] Procedures DELIVERY OF PRODUCTS OF CONCEPTION, EXTERNAL APPROACH (03/21/17) DRAINAGE OF AMNIOTIC FL, THERAP FROM POC, VIA OPENING (03/21/17) Family History: States: Unknown Family Hx - Social History Hx Tobacco Use: Yes Hx Alcohol Use: No Hx Substance Use: No - Immunization History Hx Tetanus Toxoid Vaccination: No Hx Influenza Vaccination: No Hx Pneumococcal Vaccination: No Review Of Systems Constitutional: Negative for: Fever Gastrointestinal: Positive for: Nausea, Vomiting, Abdominal Pain (epigastric ), Diarrhea Genitourinary: Negative for: Dysuria, Hematuria, Vaginal Discharge, Vaginal Bleeding Physical Exam - Physical Exam Appears: Non-toxic, Other (uncomfortable ) Skin: Warm, Dry Head: Normacephalic Eye(s): bilateral: EOMI Chest: Symmetrical Cardiovascular: Rhythm Regular, Other (mildly tachycardiac) Respiratory: Normal Breath Sounds Gastrointestinal/Abdominal: Soft, Tenderness (epigastric) Back: No CVA Tenderness Extremity: Normal ROM (x4) Neurological/Psych: Oriented x3, Normal Speech ED Course And Treatment - Laboratory Results Result Diagrams: 04/03/19 10:52 04/03/19 10:52 Lab Results: Total Bilirubin 0.5 mg/dL (0.2-1.3) 04/03/19 10:52 AST 56 U/L (14-36) H D 04/03/19 10:52 ALT 81 U/L (9-52) H D 04/03/19 10:52 Alkaline Phosphatase 124 U/L (38-126) 04/03/19 10:52 Total Protein 8.3 g/dL (6.3-8.3) 04/03/19 10:52 Albumin 4.7 g/dL (3.5-5.0) 04/03/19 10:52 Globulin 3.7 gm/dL (2.2-3.9) 04/03/19 10:52 Albumin/Globulin Ratio 1.3 (1.0-2.1) 04/03/19 10:52 Lipase 106 U/L (23-300) 04/03/19 10:52 Urine HCG, Qual Negative (NEGATIVE) 04/03/19 10:52 Urine HCG, Qual Negative (NEGATIVE) 04/03/19 10:52 O2 Sat by Pulse Oximetry: 98 (RA) Pulse Ox Interpretation: Normal Progress Note: plans: -- labs. -- IV fluids. -- pepcid. -- zofran Disposition - Disposition Forms: [employer] ([place]) - Scribe Statement The provider has reviewed the documentation as recorded by the Scribe Mercedez Nunes Provider Attestation: All medical record entries made by the Scribe were at my direction and personally dictated by me. I have reviewed the chart and agree that the record accurately reflects my personal performance of the history, physical exam, medical decision making, and the department course for this patient. I have also personally directed, reviewed, and agree with the discharge instructions and d isposition.
[2019-04-03 12:12] LABS: LYMPHOCYTE 8 % (20-40); MONOCYTE 3 % (0-10); NEUTROPHIL 89 % (50-75); PLATELET ESTIMATE NORMAL (NORMAL); TOTAL CELLS COUNTED 100
[2019-04-03] MEDS ORDERED: Iodixanol 320 MG/ML 100 ML BOTTLE IV ONE (12:28)
--- NOTE | 2019-04-03 14:19 | CT ---
Date of service: 04/03/2019 PROCEDURE: CT abdomen and pelvis HISTORY: Upper abdominal pain, vomiting, diarrhea COMPARISON: Comparison made with prior CT scan of the abdomen pelvis 04/04/2018. TECHNIQUE: Contiguous axial images of the abdomen and pelvis. Oral contrast was administered. No IV contrast given. Coronal and Sagittal reformats generated. Radiation dose: Total exam DLP = 1030.57 mGy-cm. This CT exam was performed using one or more of the following dose reduction techniques: Automated exposure control, adjustment of the mA and/or kV according to patient size, and/or use of iterative reconstruction technique. FINDINGS: LOWER THORAX: Heart size within range of normal. No significant pericardial effusion. Lung bases clear LIVER: Liver is enlarged measuring nearly 22 cm mass collection in CC dimension.. Moderate to fairly significant diffuse fatty hepatic infiltration. No obvious masses, collection or calcification. GALLBLADDER AND BILE DUCTS: Cholecystectomy PANCREAS: Pancreas unremarkable without mass collection or calcification. No significant pancreatic ductal dilatation. SPLEEN: Spleen unremarkable with normal size and attenuation pattern ADRENALS: No adrenal lesions. KIDNEYS AND URETERS: Kidneys demonstrate symmetric nephrograms. No evidence of nephrolithiasis or hydronephrosis BLADDER: Urinary bladder is physiologically distended. No evidence of intraluminal urinary bladder calculi. REPRODUCTIVE: Unremarkable as visualized APPENDIX: No evidence of acute appendicitis. BOWEL: Evaluation of the bowel is somewhat limited due to the lack of oral contrast material. Stomach is incompletely distended with thick-walled appearance. Visualized loops of small bowel exhibit normal contour and caliber however note made of multiple fluid-filled thick-walled loops of small bowel consistent with enteritis. There is also fluid seen throughout most of the colon with wall thickening of the distal descending and sigmoid colon consistent with colitis and secondary diarrhea.. PERITONEUM: Unremarkable. No fluid collection. No free air. Small fat containing umbilical hernia. LYMPH NODES: Unremarkable. No enlarged lymph nodes. VASCULATURE: Unremarkable. No aortic aneurysm. No aortic atherosclerotic calcification or mural plaque present. BONES: There are no acute fractures. OTHER FINDINGS: None. IMPRESSION: Findings are consistent with enterocolitis and secondary diarrheal illness. Hepatomegaly with moderate to significant fatty infiltration. Cholecystectomy.
[2019-04-03] MEDS ORDERED: Morphine 4 MG/ML VIAL ONE (14:45)
[2019-04-03] MEDS ORDERED: metroNIDAZOLE IV 500 mg/100 ml 500 MG/100 ML BAG IV STA (15:34)
[2019-04-03] MEDS ORDERED: Ciprofloxacin 400mg/200ml D5W 400 MG/200 ML BAG IV STA (15:34)
[2019-04-03] MEDS ORDERED: metroNIDAZOLE IV 500 mg/100 ml 100 ML ONE (15:49)
[2019-04-03] MEDS: Sodium Chloride 0.9% 1,000 ML IV SCH ×2 (16:30→23:01)
[2019-04-03] MEDS ORDERED: Ciprofloxacin 400mg/200ml D5W 400 MG/200 ML BAG IVPB ONE (16:31)
--- NOTE | 2019-04-03 17:10 | CP.PCM.HP ---
<Julian Davis - Last Filed: 04/03/19 17:21> History of Present Illness - History of Present Illness History of Present Illness: ' PGY-1 History and Physical for Dr. Mariely Quintana Patient is a 28 yo F with PMHx cholelithiasis who presents with epigastric abdominal pain and vomiting x1 day. Patient states she had similar episode two weeks ago that resolved with fluids OTC medications. Patient states this morning she woke up with abdominal pain and has been vomiting yellow nonbloody vomit throughout the day. She has not been able to keep food down. Patient states pain is sub-xiphoid 07/14 and does not radiate to back, sides, or shoulders. Her last mentrual cycle ended n 03/18 and was shorter than average for her (lasted 3 days as oppsed to 5 which is her normal). She denies ex cessive vagnial bleeding, vaginal discharge, or foul odors. Patient denies fevers, chills, SOB, back pain, dizziness, JENSEN, cough, congestion, diarrhea, bloody vomit, black tarry stools, or constipation. 12-point ROS reviewed and all negative except as per HPI. Med hx: cholelithiasis Surg hx: lap cindy Social hx: denies tobacco and drug use, social alcohol use on special occasions. Mother of 4 children. Fam hx: DM2 on mother's side, CAD on father's side Allergies: NKDA Meds: denies chronic med use Present on Admission - Present on Admission Any Indicators Present on Admission: No Past Patient History - Infectious Disease Hx of Infectious Diseases: None - Past Medical History & Family History Past Medical History?: Yes - Past Social History Smoking Status: Never Smoked - CARDIAC Hx Cardiac Disorders: No - PULMONARY Hx Asthma: No - NEUROLOGICAL Hx Neurological Disorder: No - HEENT Hx HEENT Problems: Yes Other/Comment: reports seeing black spots to L eye for 6 months - RENAL Hx Chronic Kidney Disease: No - ENDOCRINE/METABOLIC Hx Endocrine Disorders: No Hx Diabetes Mellitus Type 2: No - HEMATOLOGICAL/ONCOLOGICAL Hx Human Immunodeficiency Virus (HIV): No - INTEGUMENTARY Hx Dermatological Problems: No - MUSCULOSKELETAL/RHEUMATOLOGICAL Hx Musculoskeletal Disorders: No Hx Falls: No - GASTROINTESTINAL Hx Gall Bladder Disease: Yes - GENITOURINARY/GYNECOLOGICAL Hx Genitourinary Disorders: No - PSYCHIATRIC Hx Substance Use: No - SURGICAL HISTORY Hx Cholecystectomy: Yes - ANESTHESIA Hx Anesthesia: Yes Hx Anesthesia Reactions: No Meds Allergies/Adverse Reactions: Allergies Allergy/AdvReac Type Severity Reaction Status Date / Time No Known Allergies Allergy Verified 11/11/18 20:31 Physical Exam - Constitutional Appears: Non-toxic, No Acute Distress - Head Exam Head Exam: ATRAUMATIC, NORMOCEPHALIC - Eye Exam Eye Exam: EOMI, Normal appearance - ENT Exam ENT Exam: Mucous Membranes Moist - Respiratory Exam Respiratory Exam: Clear to Auscultation Bilateral, NORMAL BREATHING PATTERN. absent: Rhonchi, Wheezes - Cardiovascular Exam Cardiovascular Exam: REGULAR RHYTHM, +S1, +S2 - GI/Abdominal Exam GI & Abdominal Exam: Normal Bowel Sounds, Soft, Tenderness (epigastric tenderness, most pronounced sup-xiphoid). absent: Distended, Guarding, Rebound, Rigid Additional comments: central obesity, striae - Extremities Exam Extremities exam: Positive for: normal inspection. Negative for: pedal edema, tenderness - Neurological Exam Neurological exam: Alert, CN II-XII Intact, Oriented x3 - Psychiatric Exam Psychiatric exam: Normal Affect, Normal Mood - Skin Skin Exam: Dry, Intact Results - Vital Signs Recent Vital Signs: Last Vital Signs Temp 98.2 F 04/03/19 16:19 Pulse 85 04/03/19 16:19 Resp 20 04/03/19 16:19 BP 103/67 04/03/19 16:19 Pulse Ox 99 04/03/19 16:19 - Labs Result Diagrams: 04/03/19 10:52 04/03/19 10:52 Labs: Laboratory Results - last 24 hr 04/03/19 04/03/19 04/03/19 10:52 10:52 10:52 WBC 19.0 H D RBC 4.87 Hgb 15.6 D Hct 43.7 MCV 89.7 D MCH 31.9 H MCHC 35.6 RDW 13.1 Plt Count 276 MPV 9.2 Neut % (Auto) 86.3 H Lymph % (Auto) 7.6 L [place] % (Auto) 4.6 Eos % (Auto) 1.2 Baso % (Auto) 0.3 Neut # (Auto) 16.4 H Lymph # (Auto) 1.4 [place] # (Auto) 0.9 H Eos # (Auto) 0.2 Baso # (Auto) 0.0 Neutrophils % (Manual) 89 H Lymphocytes % (Manual) 8 L Monocytes % (Manual) 3 Platelet Estimate Normal RBC Morphology Normal Sodium 139 Potassium 4.0 Chloride 103 Carbon Dioxide 22 Anion Gap 19 BUN 14 Creatinine 0.7 Est GFR ( Amer) > 60 Est GFR (Non-Af Amer) > 60 Random Glucose 119 H Calcium 9.4 Total Bilirubin 0.5 AST 56 H D ALT 81 H D Alkaline Phosphatase 124 Total Protein 8.3 Albumin 4.7 Globulin 3.7 Albumin/Globulin Ratio 1.3 Lipase 106 Urine Color Yellow Urine Clarity Hazy Urine pH 6.0 Ur Specific [place] 1.023 Urine Protein Negative Urine Glucose (UA) Normal Urine Ketones Negative Urine Blood Negative Urine Nitrate Negative Urine Bilirubin Negative Urine Urobilinogen Normal Ur Leukocyte Esterase Neg Urine WBC (Auto) < 1 Urine RBC (Auto) < 1 Ur Squamous Epith Cells 3 Urine Bacteria Rare Urine HCG, Qual Negative Assessment & Plan - Assessment and Plan (Free Text) Assessment: 28 yo F with PMHx cholelithiasis presents with nausea and vomiting, found to have enterocolitis on CT scan with elevated white count Enterocolitis status: acute Imaging: Findings are consistent with enterocolitis and secondary diarrheal illness. Hepatomegaly with moderate to significant fatty infiltration. Cholecystectomy. -EKG: NSR, normal QTc (ensure normal QT interval prior to cipro, zofran) -WBC 12, afebrile -Cipro and flagyl in ED -Morphine x4mg IV given in ED -UDS (will be positive for opiates as patient already received morphin in ED) Meds -NS @ 135 cc/hr -Zofran/Reglan each prn Q6, tapered Abx -Cipro 400 mg IV Q12 -Flagyl 250 mg IV Q8 Ppx -Lovenox 30 mg SC daily Assessment and plan d/w Dr. Mariely Davis, PGY-1 <Danielito Quintana - Last Filed: 04/07/19 12:40> Results - Vital Signs Recent Vital Signs: Last Vital Signs Temp 98.1 F 04/04/19 15:00 Pulse 63 04/04/19 15:00 Resp 20 04/04/19 15:00 BP 100/61 04/04/19 15:00 Pulse Ox 98 04/04/19 15:00 - Labs Result Diagrams: 04/04/19 06:47 04/04/19 06:47 Attending/Attestation - Attestation I have personally seen and examined this patient.: Yes I have fully participated in the care of the patient.: Yes I have reviewed all pertinent clinical information: Yes Notes (Text): 04/07/19 12:40 This is a late entry. Care of this patient (History, Physical, Assessment and Plan, and Orders) was gone over in detail with resident Dr. Madeline Davis. Danielito Quintana D.O.
[2019-04-03 17:36] LABS: BARBITURATES, UR NEGATIVE (NEGATIVE); BENZODIAZEPINES, UR NEGATIVE (NEGATIVE); OPIATES, UR NEGATIVE (NEGATIVE); PHENCYCLIDINE, UR NEGATIVE (NEGATIVE)
[2019-04-03] MEDS: Enoxaparin 30 mg Syringe SC SCH (21:22)
[2019-04-04] MEDS: Sodium Chloride 0.9% 1,000 ML IV SCH ×3 (04:52→14:10)
[2019-04-04] MEDS: metroNIDAZOLE IV 250mg/50 ml 250 MG/50 ML BAG IVPB SCH ×2 (06:11→14:09)
[2019-04-04] MEDS ORDERED: Ciprofloxacin 400mg/200ml D5W 400 MG/200 ML BAG IVPB SCH (07:00)
[2019-04-04 07:14] LABS: BASO % 0.5 % (0.0-2.0); EOS # 0.2 K/uL (0.0-0.7); EOS % 4.2 % (0.0-4.0); LYMPH # 1.7 K/uL (1.0-4.3); LYMPH % 29.5 % (20.0-40.0); MEAN CELL VOLUME 89.3 fL (81.0-99.0); MEAN CORPUSCULAR HEMOGLOBIN 31.7 pg (27.0-31.0); MEAN CORPUSCULAR HGB CONC 35.5 g/dL (33.0-37.0); MEAN PLATELET VOLUME 9.1 fL (7.2-11.7); MONO # 0.5 K/uL (0.0-0.8); MONO % 8.6 % (0.0-10.0); NEUT # 3.2 K/uL (1.8-7.0); NEUT % 57.2 % (50.0-75.0); NRBC % 0.1 % (0.0-2.0); RBC 4.12 Mil/uL (3.80-5.20); RED CELL DISTRIBUTION WIDTH 12.8 % (11.5-14.5)
[2019-04-04 07:15] LABS: ALB/GLOB RATIO 1.3 (1.0-2.1); ALBUMIN 3.6 g/dL (3.5-5.0); ALT/SGPT 169 U/L (9-52); AST/SGOT 99 U/L (14-36); BLOOD UREA NITROGEN 7 mg/dL (7-17); CALCIUM 8.2 mg/dl (8.6-10.4); GFR NON-AFRICAN AMERICAN > 60
[2019-04-04 07:24] LABS: HEMOGLOBIN 13.1 g/dL (11.0-16.0); WHITE BLOOD COUNT 5.6 K/uL (4.8-10.8)
[2019-04-04] MEDS ORDERED: Potassium Chloride 20 mEq ER Tab PO ONE (09:01)
--- NOTE | 2019-04-04 09:03 | CP.PCM.DIS ---
<Sammy Han - Last Filed: 04/04/19 14:30> Provider - Provider Date of Admission: 04/03/19 15:44 Attending physician: Danielito Quintana DO Primary care physician: None Consults: NONE Time Spent in preparation of Discharge (in minutes): 41 Diagnosis - Discharge Diagnosis (1) Enterocolitis Status: Acute Comment: Possible giardia - will cover with flagyl. See hospital course for full details (2) Elevated LFTs Status: Acute Comment: Giardia can raise lfts, as can hepatitis/HIV/fatty liver. Fatty liver seen on CT Hospital Course - Lab Results Lab Results: Most Recent Lab Values WBC 5.6 K/uL (4.8-10.8) D 04/04/19 06:47 RBC 4.12 Mil/uL (3.80-5.20) 04/04/19 06:47 Hgb 13.1 g/dL (11.0-16.0) D 04/04/19 06:47 Hct 36.8 % (34.0-47.0) 04/04/19 06:47 MCV 89.3 fL (81.0-99.0) 04/04/19 06:47 MCH 31.7 pg (27.0-31.0) H 04/04/19 06:47 MCHC 35.5 g/dL (33.0-37.0) 04/04/19 06:47 RDW 12.8 % (11.5-14.5) 04/04/19 06:47 Plt Count 215 K/uL (130-400) 04/04/19 06:47 MPV 9.1 fL (7.2-11.7) 04/04/19 06:47 Neut % (Auto) 57.2 % (50.0-75.0) 04/04/19 06:47 Lymph % (Auto) 29.5 % (20.0-40.0) 04/04/19 06:47 Ashley % (Auto) 8.6 % (0.0-10.0) 04/04/19 06:47 Eos % (Auto) 4.2 % (0.0-4.0) H 04/04/19 06:47 Baso % (Auto) 0.5 % (0.0-2.0) 04/04/19 06:47 Neut # (Auto) 3.2 K/uL (1.8-7.0) 04/04/19 06:47 Lymph # (Auto) 1.7 K/uL (1.0-4.3) 04/04/19 06:47 Ashley # (Auto) 0.5 K/uL (0.0-0.8) 04/04/19 06:47 Eos # (Auto) 0.2 K/uL (0.0-0.7) 04/04/19 06:47 Baso # (Auto) 0.0 K/uL (0.0-0.2) 04/04/19 06:47 Neutrophils % (Manual) 89 % (50-75) H 04/03/19 10:52 Lymphocytes % (Manual) 8 % (20-40) L 04/03/19 10:52 Monocytes % (Manual) 3 % (0-10) 04/03/19 10:52 Platelet Estimate Normal (NORMAL) 04/03/19 10:52 RBC Morphology Normal 04/03/19 10:52 Sodium 138 mmol/L (132-148) 04/04/19 06:47 Potassium 3.5 mmol/L (3.6-5.2) L 04/04/19 06:47 Chloride 104 mmol/L (98-107) 04/04/19 06:47 Carbon Dioxide 26 mmol/L (22-30) 04/04/19 06:47 Anion Gap 11 (10-20) 04/04/19 06:47 BUN 7 mg/dL (7-17) 04/04/19 06:47 Creatinine 0.6 mg/dL (0.7-1.2) L 04/04/19 06:47 Est GFR ( Amer) > 60 04/04/19 06:47 Est GFR (Non-Af Amer) > 60 04/04/19 06:47 Random Glucose 94 mg/dL (65-105) D 04/04/19 06:47 Calcium 8.2 mg/dl (8.6-10.4) L 04/04/19 06:47 Total Bilirubin 0.7 mg/dL (0.2-1.3) 04/04/19 06:47 AST 99 U/L (14-36) H D 04/04/19 06:47 ALT 169 U/L (9-52) H D 04/04/19 06:47 Alkaline Phosphatase 85 U/L (38-126) 04/04/19 06:47 Total Protein 6.4 g/dL (6.3-8.3) 04/04/19 06:47 Albumin 3.6 g/dL (3.5-5.0) 04/04/19 06:47 Globulin 2.8 gm/dL (2.2-3.9) 04/04/19 06:47 Albumin/Globulin Ratio 1.3 (1.0-2.1) 04/04/19 06:47 Lipase 106 U/L (23-300) 04/03/19 10:52 Urine Color Yellow (YELLOW) 04/03/19 10:52 Urine Clarity Hazy (Clear) 04/03/19 10:52 Urine pH 6.0 (5.0-8.0) 04/03/19 10:52 Ur Specific [place] 1.023 (1.003-1.030) 04/03/19 10:52 Urine Protein Negative mg/dL (NEGATIVE) 04/03/19 10:52 Urine Glucose (UA) Normal mg/dL (Normal) 04/03/19 10:52 Urine Ketones Negative mg/dL (NEGATIVE) 04/03/19 10:52 Urine Blood Negative (NEGATIVE) 04/03/19 10:52 Urine Nitrate Negative (NEGATIVE) 04/03/19 10:52 Urine Bilirubin Negative (NEGATIVE) 04/03/19 10:52 Urine Urobilinogen Normal mg/dL (0.2-1.0) 04/03/19 10:52 Ur Leukocyte Esterase Neg Elke/uL (Negative) 04/03/19 10:52 Urine WBC (Auto) < 1 /hpf (0-5) 04/03/19 10:52 Urine RBC (Auto) < 1 /hpf (0-3) 04/03/19 10:52 Ur Squamous Epith Cells 3 /hpf (0-5) 04/03/19 10:52 Urine Bacteria Rare (<OCC) 04/03/19 10:52 Urine HCG, Qual Negative (NEGATIVE) 04/03/19 10:52 Urine Opiates Screen Negative (NEGATIVE) 04/03/19 17:14 Urine Methadone Screen Negative (NEGATIVE) 04/03/19 17:14 Ur Barbiturates Screen Negative (NEGATIVE) 04/03/19 17:14 Ur Phencyclidine Scrn Negative (NEGATIVE) 04/03/19 17:14 Ur Amphetamines Screen Negative (NEGATIVE) 04/03/19 17:14 U Benzodiazepines Scrn Negative (NEGATIVE) 04/03/19 17:14 U Oth Cocaine Metabols Negative (NEGATIVE) 04/03/19 17:14 U Cannabinoids Screen Negative (NEGATIVE) 04/03/19 17:14 - Hospital Course Hospital Course: On admission: Patient is a 28 yo F with PMHx cholelithiasis who presents with epigastric abdominal pain and vomiting x1 day. Patient states she had similar episode two weeks ago that resolved with fluids OTC medications. Patient states this morning she woke up with abdominal pain and has been vomiting yellow nonbloody vomit throughout the day. She has not been able to keep food down. Patient states pain is sub-xiphoid 07/14 and does not radiate to back, sides, or shoulders. Her last mentrual cycle ended n 03/18 and was shorter than average for her (lasted 3 days as oppsed to 5 which is her normal). She denies exc essive vagnial bleeding, vaginal discharge, or foul odors. Patient denies fevers, chills, SOB, back pain, dizziness, JENSEN, cough, congestion, diarrhea, bloody vomit, black tarry stools, or constipation. Pt admitted recent swim in [place]. Hospital course: Admitted on 04/03/[address] A/P showed enterocolitis. There was concern for Giardia due to recent [place] swimming. Pt started on cipro/flagyl IV antibiotics, and Zofran/Reglan as antiemetics. Patient afebrile overnight into 04/04/19 and no longer nauseous or vomiting. She was able to tolerate soft diet and was no longer having diarrhea. CT on admission showed significant fatty infiltrates of the liver and she will need to follow up with outpatient PMD for follow up. LFTs were elevated over course so hepatitis panel, HIV ordered. She will follow these labs up at the clinic at [facility]. Patient dc with total of 10 days of cipro/flagyl. Given prescription for lactobacillus probiotic as well. She was advised to eat BRAT diet for the next couple of days and wash her hands thoroughly. See complete DC instruction written by attending, Dr Shant Quintana below Assessments: 1). Enterocolitis Status: Acute Suspect Giardia Continue the Cipro and Flagyl for 10 days Stool studies are pending and she will have to follow them up through the clinic She is feeling better and would like to get back home to her baby 2). Elevated LFTs Status: Acute Could be secondary to suspected Giardia from swimming in a [place] However, Hepatitis and HIV panels ordered and will need to follow them up through the clinic The LFTs will also have to be repeated in the clinic to make sure that they are coming down Patient is stable for discharge. The following instructions were explained to the patient and a copy will need to be provided to her in Japanese and Malawian upon discharge: 1). Please schedule follow up with the [facility] located on [address] of [address] in [place], [place] by calling on Saturday04/06/19 for an appointment to take place in the next 7 to 10 days. Please make the appointment with Dr. Sammy Han as he is very good, kind, and caring and will help you to coordinate your health care. 2). You have some lab work for which we do not have the results for at the time of your discharge. Please make sure that you follow up with the results through the [facility] at the of your appointment. 3). Please have the following prescriptions filled at your pharmacy on your way home from the hospital and take them as instructed: Ciprofloxacin 500 mg, 1 tablet by twice a day at 8 AM and 8 PM, Dispense #20, NO refills Metronidazole 500 mg,1 tablet by mouth three times a day at 8 AM, 2PM, and 8 PM, Dispense #30, NO refills Lactobacillus, 1 capsule by mouth twice a day at 10 AM and 6 PM until finishes, Dispense #80, NO refills 4). Please make sure that your hands are washed thoroughly with warm soap and water after you use the bathroom 5). For the next 1 to 2 days eat whole wheat toast, eggs, and soups and stay well hydrated with water 6). Please take care and be well. Take your baby to the park on a good day at the time that the sun is setting so as to watch the sun light up the kelly with brilliant colors. Danielito Quintana D.O. - Date & Time of H&P Date of H&P: 04/03/19 Time of H&P: 16:58 Discharge Exam - Head Exam Head Exam: ATRAUMATIC, NORMAL INSPECTION, NORMOCEPHALIC - Eye Exam Eye Exam: EOMI, PERRL. absent: Scleral icterus - ENT Exam ENT Exam: Mucous Membranes Moist - Neck Exam Neck exam: Normal Inspection - Respiratory Exam Respiratory Exam: Clear to PA & Lateral, UNREMARKABLE - Cardiovascular Exam Cardiovascular Exam: REGULAR RHYTHM, +S1, +S2 - GI/Abdominal Exam GI & Abdominal Exam: Normal Bowel Sounds, Soft. absent: Distended, Firm, Tenderness - Extremities Exam Extremities exam: normal inspection - Back Exam Back exam: absent: CVA tenderness (L), CVA tenderness (R) - Neurological Exam Neurological exam: Alert, CN II-XII Intact, Oriented x3 - Psychiatric Exam Psychiatric exam: Normal Affect, Normal Mood - Skin Skin Exam: Normal Color, Warm Discharge Plan - Discharge Medications Prescriptions: Ciprofloxacin HCl [Cipro] 500 mg PO BID #20 tablet Lactobacillus Acidophilus [Lactobacillus] 1 cap PO BID #80 cap Metronidazole 500 mg PO TID #30 tablet - Follow Up Plan Condition: GOOD Disposition: HOME/ ROUTINE Instructions: Diarrhea in Adolescents and Adults, Ciprofloxacin (Systemic), Metronidazole (Systemic), Colitis (DC) Additional Instructions: Las siguientes instrucciones se explicaron al paciente y se deber proporcionar anca copia en ingls y espaol al momento del yuri: 1). Por favor, lloyd un seguimiento con la [facility] [address] en [place], [place] llamando el 04/06/19 para anca avis que tendr lugar en los prximos 7 a 10 foy. Por favor lloyd la avis con el Dr. Sammy Han ya que es muy echeverria, anthony y atento y le ayudar a coordinar marcos atencin mdica. 2). Tiene algn trabajo de laboratorio para el cual no tenemos los resultados en el momento de marcos yuri. Asegrese de hacer un seguimiento de los resultados a travs de la [facility] al momento de marcos avis. 3). Por favor, llene las siguientes recetas en marcos farmacia cuando vaya a casa desde el hospital y tmelas segn las instrucciones: Ciprofloxacina 500 mg, 1 tableta por dos veces al da a las 8 AM y 8 PM, dispensado # 20, NO recargas Metronidazol 500 mg, 1 tableta por va oral kev veces al da a las 8 AM, 2PM y 8 PM, Dispense # 30, NO se repiten Lactobacillus, 1 cpsula por va oral dos veces al da a las 10 AM y 6 PM hasta que termine, Dispense # 80, NO se rellenan 4). Asegrese de lavarse yazmin las larry con jabn y agua tibia despus de usar el frandy. 5). Dixon los prximos 1 a 2 foy, coma carrasquillo sarmad integral, huevos y sopas y mantngase yazmin hidratado con agua. 6). Por favor cuidate y estar yazmin. Lleve a marcos beb al parque en un buen da a la hora de la puesta shane para gil control room helper el nereida ilumina el te con colores brillantes. Danielito Quintana D.O. The following instructions were explained to the patient and a copy will need to be provided to her in Japanese and Malawian upon discharge: 1). Please schedule follow up with the [facility] located on [address] of [address] in [place], [place] by calling on Saturday04/06/19 for an appointment to take place in the next 7 to 10 days. Please make the appointment with Dr. Sammy Han as he is very good, kind, and caring and will help you to coordinate your health care. 2). You have some lab work for which we do not have the results for at the time of your discharge. Please make sure that you follow up with the results through the [facility] at the of your appointment. 3). Please have the following prescriptions filled at your pharmacy on your way home from the hospital and take them as instructed: Ciprofloxacin 500 mg, 1 tablet by twice a day at 8 AM and 8 PM, Dispense #20, NO refills Metronidazole 500 mg,1 tablet by mouth three times a day at 8 AM, 2PM, and 8 PM, Dispense #30, NO refills Lactobacillus, 1 capsule by mouth twice a day at 10 AM and 6 PM until finishes, Dispense #80, NO refills 4). Please make sure that your hands are washed thoroughly with warm soap and water after you use the bathroom 5). For the next 1 to 2 days eat whole wheat toast, eggs, and soups and stay well hydrated with water 6). Please take care and be well. Take your baby to the park on a good day at the time that the sun is setting so as to watch the sun light up the kelly with brilliant colors. Danielito Quintana D.O. <Danielito Quintana - Last Filed: 04/07/19 12:40> Provider - Provider Date of Admission: 04/03/19 15:44 Attending physician: Ji Zavala, DO Hospital Course - Lab Results Lab Results: Most Recent Lab Values WBC 5.6 K/uL (4.8-10.8) D 04/04/19 06:47 RBC 4.12 Mil/uL (3.80-5.20) 04/04/19 06:47 Hgb 13.1 g/dL (11.0-16.0) D 04/04/19 06:47 Hct 36.8 % (34.0-47.0) 04/04/19 06:47 MCV 89.3 fL (81.0-99.0) 04/04/19 06:47 MCH 31.7 pg (27.0-31.0) H 04/04/19 06:47 MCHC 35.5 g/dL (33.0-37.0) 04/04/19 06:47 RDW 12.8 % (11.5-14.5) 04/04/19 06:47 Plt Count 215 K/uL (130-400) 04/04/19 06:47 MPV 9.1 fL (7.2-11.7) 04/04/19 06:47 Neut % (Auto) 57.2 % (50.0-75.0) 04/04/19 06:47 Lymph % (Auto) 29.5 % (20.0-40.0) 04/04/19 06:47 Ashley % (Auto) 8.6 % (0.0-10.0) 04/04/19 06:47 Eos % (Auto) 4.2 % (0.0-4.0) H 04/04/19 06:47 Baso % (Auto) 0.5 % (0.0-2.0) 04/04/19 06:47 Neut # (Auto) 3.2 K/uL (1.8-7.0) 04/04/19 06:47 Lymph # (Auto) 1.7 K/uL (1.0-4.3) 04/04/19 06:47 Ashley # (Auto) 0.5 K/uL (0.0-0.8) 04/04/19 06:47 Eos # (Auto) 0.2 K/uL (0.0-0.7) 04/04/19 06:47 Baso # (Auto) 0.0 K/uL (0.0-0.2) 04/04/19 06:47 Neutrophils % (Manual) 89 % (50-75) H 04/03/19 10:52 Lymphocytes % (Manual) 8 % (20-40) L 04/03/19 10:52 Monocytes % (Manual) 3 % (0-10) 04/03/19 10:52 Platelet Estimate Normal (NORMAL) 04/03/19 10:52 RBC Morphology Normal 04/03/19 10:52 Sodium 138 mmol/L (132-148) 04/04/19 06:47 Potassium 3.5 mmol/L (3.6-5.2) L 04/04/19 06:47 Chloride 104 mmol/L (98-107) 04/04/19 06:47 Carbon Dioxide 26 mmol/L (22-30) 04/04/19 06:47 Anion Gap 11 (10-20) 04/04/19 06:47 BUN 7 mg/dL (7-17) 04/04/19 06:47 Creatinine 0.6 mg/dL (0.7-1.2) L 04/04/19 06:47 Est GFR ( Amer) > 60 04/04/19 06:47 Est GFR (Non-Af Amer) > 60 04/04/19 06:47 Random Glucose 94 mg/dL (65-105) D 04/04/19 06:47 Calcium 8.2 mg/dl (8.6-10.4) L 04/04/19 06:47 Total Bilirubin 0.7 mg/dL (0.2-1.3) 04/04/19 06:47 AST 99 U/L (14-36) H D 04/04/19 06:47 ALT 169 U/L (9-52) H D 04/04/19 06:47 Alkaline Phosphatase 85 U/L (38-126) 04/04/19 06:47 Total Protein 6.4 g/dL (6.3-8.3) 04/04/19 06:47 Albumin 3.6 g/dL (3.5-5.0) 04/04/19 06:47 Globulin 2.8 gm/dL (2.2-3.9) 04/04/19 06:47 Albumin/Globulin Ratio 1.3 (1.0-2.1) 04/04/19 06:47 Lipase 106 U/L (23-300) 04/03/19 10:52 Urine Color Yellow (YELLOW) 04/03/19 10:52 Urine Clarity Hazy (Clear) 04/03/19 10:52 Urine pH 6.0 (5.0-8.0) 04/03/19 10:52 Ur Specific [place] 1.023 (1.003-1.030) 04/03/19 10:52 Urine Protein Negative mg/dL (NEGATIVE) 04/03/19 10:52 Urine Glucose (UA) Normal mg/dL (Normal) 04/03/19 10:52 Urine Ketones Negative mg/dL (NEGATIVE) 04/03/19 10:52 Urine Blood Negative (NEGATIVE) 04/03/19 10:52 Urine Nitrate Negative (NEGATIVE) 04/03/19 10:52 Urine Bilirubin Negative (NEGATIVE) 04/03/19 10:52 Urine Urobilinogen Normal mg/dL (0.2-1.0) 04/03/19 10:52 Ur Leukocyte Esterase Neg Elke/uL (Negative) 04/03/19 10:52 Urine WBC (Auto) < 1 /hpf (0-5) 04/03/19 10:52 Urine RBC (Auto) < 1 /hpf (0-3) 04/03/19 10:52 Ur Squamous Epith Cells 3 /hpf (0-5) 04/03/19 10:52 Urine Bacteria Rare (<OCC) 04/03/19 10:52 Urine HCG, Qual Negative (NEGATIVE) 04/03/19 10:52 Urine Opiates Screen Negative (NEGATIVE) 04/03/19 17:14 Urine Methadone Screen Negative (NEGATIVE) 04/03/19 17:14 Ur Barbiturates Screen Negative (NEGATIVE) 04/03/19 17:14 Ur Phencyclidine Scrn Negative (NEGATIVE) 04/03/19 17:14 Ur Amphetamines Screen Negative (NEGATIVE) 04/03/19 17:14 U Benzodiazepines Scrn Negative (NEGATIVE) 04/03/19 17:14 U Oth Cocaine Metabols Negative (NEGATIVE) 04/03/19 17:14 U Cannabinoids Screen Negative (NEGATIVE) 04/03/19 17:14 Hepatitis A IgM Ab Negative (NEGATIVE) 04/04/19 15:17 Hep Bs Antigen Negative (NEGATIVE) 04/04/19 15:17 Hep B Core IgM Ab Negative (NEGATIVE) 04/04/19 15:17 Hepatitis C Antibody Negative (NEGATIVE) 04/04/19 15:17 HIV 1&2 Antibody Screen Negative (NEGATIVE) 04/04/19 15:17 Attending/Attestation - Attestation I have personally seen and examined this patient.: Yes I have fully participated in the care of the patient.: Yes I have reviewed all pertinent clinical information, including history, physical exam and plan: Yes Notes (Text): 04/07/19 12:39 This is a late entry. Care of this patient was gone over in detail with resident Dr. Malorie Han. Danielito Quintana D.O.
[2019-04-04] MEDS: Enoxaparin 30 mg Syringe SC SCH ×2 (09:30→09:32)
--- NOTE | 2019-04-04 14:09 | CP.PCM.PCO ---
Physician Communication Note - Physician Communication Note Physician Communication Note: Please see above
[2019-04-04 15:36] VITALS: BP 100/61; PULSE 63; TEMP 98.1; O2SAT 98
[2019-04-06 07:59] LABS: HEPATITIS B SURFACE AG Negative (NEGATIVE)
[2019-04-06 08:05] LABS: HEPATITIS A IGM NEGATIVE (NEGATIVE); HEPATITIS B CORE AB NEGATIVE (NEGATIVE)
[2019-04-06 08:16] LABS: HEPATITIS C ANTIBODY NEGATIVE (NEGATIVE)
[2019-04-06] MEDS ORDERED: Pneumococcal 23-Valent Vaccine IM ONE (10:00)
== END 2019-04-04 17:40 | disposition home or self-care (01) ==
LOC: C.ER 09:59 → C.3T 15:44 → C.9E 16:29 → C.3T 16:41
PROVIDERS: ADMIT Hospitalist; ATTEND Hospitalist
DX: K52.9 Noninfective gastroenteritis and colitis, unspecified (principal); R79.89 Other specified abnormal findings of blood chemistry; K76.0 Fatty (change of) liver, not elsewhere classified; R11.2 Nausea with vomiting, unspecified; R10.13 Epigastric pain; Z90.49 Acquired absence of other specified parts of digestive tract; Z82.49 Family history of ischemic heart disease and other diseases of the circulatory system; Z87.19 Personal history of other diseases of the digestive system
CPT/HCPCS: 36415; 74177; 80053; 80074; 80324; 80345; 80346; 80349; 80353; 80358; 80361; 81001; 83690; 83992; 84703; 85025; 86703; 96361; 96365; 96366; 96367; 96375; 96376; 99285; G0378; J0744; J2270; J2405; J2765; J7030; Q9967